=== PATIENT | male | born 1985 | race Caucasian/White ===

== ENCOUNTER 2019-12-08 10:26 | Outpatient (CLI) | payer OTHER, SELFPAY ==
--- NOTE | ~2019-12-08 | XR_ITS ---
EXAMINATION:XR_CERV2-3V_CR DATE: 12/08/2019 11:06 INDICATION: Neck pain TECHNIQUE: AP, lateral, and odontoid views of the cervical spine are provided. COMPARISON: 02/08/2019 FINDINGS: Alignment is normal. The odontoid is intact. No fracture is identified. Vertebral body heig hts and disk spaces are normal. Prevertebral soft tissues are normal. Mild uncovertebral joint osteoa rthritis is again noted at C4-5 and C5-6. The cervicothoracic junction is not well demonstrated on th e lateral view however no definite abnormality is seen. IMPRESSION: 1. Mild cervical spondylosis without acute findings or significant interval change. Reviewed, dictated and finalized at location A. IMPRESSION: 1. Mild cervical spondylosis without acute findings or significant interval yonatan nge.
--- NOTE | ~2019-12-08 | XR_ITS ---
EXAMINATION: XR elbow LT min 3V DATE: 12/08/2019 11:06 INDICATION: Left elbow pain. TECHNIQUE: 4 views of left elbow were obtained. COMPARISON: None. FINDINGS: Bone alignment is normal. No fracture. Joint spaces are well maintained. There is no elbow joint effusion. IMPRESSION: 1. Normal left elbow. Reviewed, dictated and finalized at location A. IMPRESSION: 1. Normal left elbow.
== END 2019-12-08 10:27 | disposition home or self-care (01) ==
LOC: CHSIMG 10:33
PROVIDERS: PCP Internal Medicine; Visit Provider Internal Medicine
DX: M54.2 Cervicalgia (principal); R20.0 Anesthesia of skin; M25.522 Pain in left elbow
CPT/HCPCS: 72040; 73080

== ENCOUNTER 2020-01-26 13:52 | Outpatient (RCR) | payer OTHER, SELFPAY ==
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
--- NOTE | 2020-03-04 13:34 | PTOPEVAL ---
Thank you for referring Nate Kyle to [facility].? The patient is scheduled to be seen for therapy? ____x/week for ___ weeks. Please review, sign, date and return this plan of care ALEJANDRO. I agree with and certify that the following plan of care is medically necessary. Referring Physician Date Admitting Provider: Attending Provider: Pacheco Jean MD Referring Provider: *PT Outpatient Evaluation Start: 01/26/20 14:06 Freq: Status: Active Protocol: Document 03/04/20 12:52 BRITT (Rec: 03/04/20 13:31 BRITT [email or web address]) Therapy Assessment Status Assessment Status Assessment Status Discharge Evaluation Information Problem Diagnosis left shoulder pain with numbness Onset 12/02/19 Subjective Information Pt. notes improved ROM. She Query Text:As Reported By Patient/ reports that his pain levels Family have reduced to a 3/10 consistently. He states that he can ride his motorcycle and push the throttle. He still notes some stinging around the elbow. He also notes that he can look both ways without feeling pulling across the top part of the shoulder. He states that he does have consult with ortho on Wednesday and states that he feels that he could return to work at this time. Pain Assessment Pain Scale Pain Scale Used Numeric (1 - 10) Self Report Pain Assessment Left Arm(s) Reported Pain Level 3 Pain Score Pain Score 3: Self Report Upper Extremity Range of Motion General Upper Extremity Range of Motion Gross Upper Extremity Range of Motion left shoulder flexion 165 Comments left shoulder ER 95 degrees Apleys scratch test for combined extension and IR is symmetrical between the right and left u.e's reaching to the mid thoracic region. Upper Extremity Muscle Strength Testing General Upper Extremity Strength Gross Upper Extremity Strength Comments bilateral shoulder flexion 5/5 bilateral shoulder ER 5/5 bilateral shoulder IR 5/5 bilateral shoulder abduction 5 /5 bilateral elbow flexion 5/5 bilateral elbow extension 5/5 Palpation Asses
== END 2020-03-04 15:32 | disposition home or self-care (01) ==
LOC: CHSPT 13:52
PROVIDERS: PCP Internal Medicine; Visit Provider Internal Medicine
DX: M25.512 Pain in left shoulder (principal); R20.2 Paresthesia of skin
CPT/HCPCS: 97014; 97110; 97140; 97161; G0283

== ENCOUNTER 2021-06-27 15:29 | Outpatient (CLI) | payer OTHER, SELFPAY ==
[2021-06-27 17:32] LABS: SARS-CoV-2 Ag Negative (Negative)
[2021-06-27 17:32] LABS: Influenza Control Valid (Valid)
== END 2021-06-27 15:30 | disposition home or self-care (01) ==
LOC: CHSLAB 15:34
PROVIDERS: PCP Internal Medicine; Visit Provider Nurse Practitioner Family
DX: R51.9 Headache, unspecified (principal); Z20.822 Contact with and (suspected) exposure to COVID-19
CPT/HCPCS: 36415; 87426; 87804; C9803

== ENCOUNTER 2021-07-07 09:53 | Outpatient (CLI) | payer OTHER, SELFPAY ==
--- NOTE | ~2021-07-07 | XR_ITS ---
EXAMINATION: XR chest 2V EXAM DATE: 07/07/2021 10:22 INDICATION: cough/dyspnea/chest pain x 10 days . TECHNIQUE: Frontal and lateral projections of the chest obtained and reviewed. There is no prior alie dy for comparison. FINDINGS: The lungs are clear. There are no pleural effusions. The cardiomediastinal silhouette is within normal limits. There is no pneumothorax suspected. The bones and soft tissues are unremarkab le. IMPRESSION: No acute cardiopulmonary findings. Reviewed, dictated and finalized at location G. TS DIRECTOR
[2021-07-07 10:37] LABS: Hematocrit 45.2 % (40.0-54.0); Hemoglobin 14.2 g/dL (14.0-18.0); Mean Corpuscular HGB Conc 31.4 g/dL (32.0-36.0); Mean Corpuscular Hemoglobin 27.9 pg (27.0-31.0); Mean Corpuscular Volume 88.8 fL (78.0-102.0); Mean Platelet Volume 9.2 fl (8.7-11.0); Platelet Count Result 322 K/mm3 (150-420); Red Blood Count 5.09 M/mm3 (4.70-6.10); Red Cell Distribution Width 13.6 % (11.6-14.4); White Blood Count 15.5 K/mm3 (4.8-10.8)
[2021-07-07 10:50] LABS: D Dimer 0.33 mg/L (0.19-0.50)
[2021-07-07 11:02] LABS: Alanine Aminotransferase 43 U/L (16-63); Albumin Level 3.2 g/dL (3.4-5.0); Alkaline Phosphatase 64 U/L (46-116); Anion Gap 9 mmol/L (8-16); Aspartate Amino Transferase 14 U/L (15-37); Bilirubin,Total 0.3 mg/dL (0.00-1.00); Blood Urea Nitrogen 16 mg/dL (7-18); CRP < 0.5 mg/dL (0.0-0.9); Calcium 8.5 mg/dL (8.5-10.1); Carbon Dioxide 26 mmol/L (21-32); Chloride 102 mmol/L (98-108); Creatine Kinase 64 U/L (39-308); Estimated Glomerular Filt Rate > 60; Glucose 100 mg/dL (70-99); Osmolality Calculated 285 mOsm/kg (285-295); Sodium 137 mmol/L (136-145); Total Protein 7.1 g/dL (6.4-8.2); Troponin I 4.2 ng/L (0.00-60.4)
[2021-07-07 11:03] LABS: SARS-CoV-2 Ag Negative (Negative)
[2021-07-07 11:30] LABS: Band Neutrophils Percent 0 % (0-6); Basophils Percent Manual 0 % (0-1); Eosinophils Percent Manual 0 % (1-6); Lymphocytes Absolute Manual 2.17 K/mm3 (1.1-4.5); Lymphocytes Percent Manual 14 % (18-44); Monocytes Absolute Manual 0.62 K/mm3 (0.1-0.90); Monocytes Percent Manual 4 % (3-9); Neutrophils Absolute Manual 12.71 K/mm3 (1.3-6.7); Neutrophils Percent Manual 82 % (46-73); Platelet Estimate Adequate (Adequate); Total Cells Counted 100
[2021-07-08 19:53] LABS: SARS-CoV-2 RNA PCR Positive
== END 2021-07-07 09:54 | disposition home or self-care (01) ==
LOC: CHSLAB 09:58
PROVIDERS: PCP Internal Medicine; Visit Provider Internal Medicine
DX: U07.1 COVID-19 (principal); R05.9 Cough, unspecified; R06.00 Dyspnea, unspecified; R07.9 Chest pain, unspecified
CPT/HCPCS: 36415; 71046; 80053; 82550; 82553; 84484; 85025; 85380; 86140; 87426; C9803; U0003; U0005

== ENCOUNTER 2021-08-25 13:47 | Outpatient (CLI) | payer OTHER, SELFPAY ==
--- NOTE | ~2021-08-25 | XR_ITS ---
EXAMINATION: XR ankle RT min 3V DATE: 08/25/2021 14:09 INDICATION: Lateral right ankle pain. Injury. TECHNIQUE: 4 views of right ankle were obtained. COMPARISON: None. FINDINGS: Bone alignment is normal. No fracture. There is mild osteoarthritis of talonavicular joint. There is an enthesophyte at plantar aspect of calcaneal tuberosity. IMPRESSION: 1. Mild osteoarthritis of talonavicular joint. Reviewed, dictated and finalized at location A. [employer] DIVISION PROJECT MANAGER
== END 2021-08-25 13:48 | disposition home or self-care (01) ==
PROVIDERS: PCP Internal Medicine; Visit Provider Internal Medicine
DX: M25.571 Pain in right ankle and joints of right foot (principal)
CPT/HCPCS: 73610

== ENCOUNTER 2021-09-02 07:24 | Outpatient (CLI) | payer OTHER, SELFPAY ==
--- NOTE | ~2021-09-02 | MR_ITS ---
EXAMINATION: MR ankle RT wo con DATE: 09/02/2021 08:23 INDICATION: Right ankle pain post twisting injury TECHNIQUE: Magnetic resonance imaging (MRI) of the right ankle was performed without intravenous cont rast. Sequences included sagittal, coronal, and axial proton-density weighted fast spin echo without and with fat saturation. COMPARISON: None. FINDINGS: Medial ankle ligaments: Deep and superficial deltoid ligaments are normal. There is thickening of the superomedial component of the spring ligament complex consistent with scarring related to chronic sprain. Lateral ankle ligaments: The anterior and posterior inferior tibiofibular ligaments are normal. The calcaneofibular images nor mal. There is increased signal along the posterior talofibular ligament without discrete tear defect suggesting relatively recent low-grade sprain. Partial tear of the anterior talofibular ligament whic h appears attenuated with some laxity but without significant surrounding edema. Tendons: Achilles tendon is normal. The peroneus longus and brevis tendons are normal. The tibialis anterior a nd extensor hallucis longus and extensor digitorum longus tendons are normal. The flexor digitorum lo ngus and flexor hallucis longus tendons are normal. Small amount of fluid seen along the normal tibia lis posterior tendon consistent with mild tenosynovitis. Plantar fascia: Mild chronic plantar enthesopathy with small osteophyte and mild thickening of the proximal plantar a poneurosis at its calcaneal origin. Bones/other: Bone alignment is normal with normal marrow signal. No fracture or pathologic marrow replacing proces s. Fluid: Physiologic amount of fluid in the joint spaces. IMPRESSION: 1. Low-grade sprain of the posterior talofibular ligament and moderate grade sprain/partial tear of t he anterior talofibular ligament, the latter without significant surrounding edema which may be more chronic. 2. Mild tibialis posterior tenosynovitis with normal appearing tendon. Reviewed, dictated and finalized at location A. IMPRESSION: 1. Low-grade sprain of the posterior talofibular ligament and moderate grade sp rain/partial tear of the anterior talofibular ligament, the latter without sign ificant surrounding edema which may be more chronic. 2. Mild tibialis posterior tenosynovitis with normal appearing tendon.
== END 2021-09-02 07:25 | disposition home or self-care (01) ==
LOC: CHSIMG 07:25
PROVIDERS: PCP Internal Medicine; Visit Provider Internal Medicine
DX: M25.571 Pain in right ankle and joints of right foot (principal)
CPT/HCPCS: 73721

== ENCOUNTER 2022-03-02 08:17 | Emergency (ER) | payer BC, SELFPAY ==
[2022-03-02 08:24] VITALS: BP 156/93; PULSE 74; RESP 20; TEMP 37.4; O2SAT 99
--- NOTE | 2022-03-02 08:57 | ED.DENTAL ---
HPI - Dental/Oral General Chief complaint: Dental/Oral Stated complaint: Toothache Time Seen by Provider: 03/02/22 09:21 Source: patient Mode of arrival: ambulatory History of Present Illness HPI Narrative: 36-year-old male presented for complaints of lower dental pain since yesterday. He endorses pain to the lower gumline and chin. He denies dental swelling drainage or fever. Taking ibuprofen without relief. He is due to complete the last dose of Augmentin today which she was taking for a dog bite for one week. MD Complaint: tooth pain Related Data Allergies Allergy/AdvReac Type Severity Reaction Status Date / Time No Known Allergies Allergy Verified 03/02/22 09:09 Review of Systems Review of Systems: CONSTITUTIONAL: Denies body aches, fever, chills ENT: Denies rhinorrhea, congestion, sore throat, or otalgia. Reports dental pain CARDIOVASCULAR: Denies chest pain, palpitations RESPIRATORY: Denies cough or dyspnea. SKIN: Denies rash, itching, or wounds. MUSCULOSKELETAL: Denies myalgia. NEUROLOGIC: Denies headache, numbness, tingling, or weakness. [facility] Past Medical History Medical History Generalized headaches Hearing loss Weight gain Surgical History Surgical History History of reconstruction of anterior cruciate ligament tear Social History Social History Smoking status: Former smoker Additional smoking assessment comments: approx 5yrs ago 2014? Alcohol intake: never Comments At time of signature, I have reviewed and agree with nursing past medical, surgical, social and family history unless otherwise noted. Please see nursing chart for further information. There is no relevant family history pertinent to the presenting complaint Exam Narrative: GENERAL: Appears in pain; no acute distress. HEAD: Normocephalic, atraumatic. EYES: EOMI. No redness or drainage. Conjunctivae normal. ENT: Dental pain location of #22--24, mild gum swelling without drainage or apparent abscess. Mucous membranes pink and moist. TMs normal bilaterally. Throat normal. Uvula midline. NECK: Normal AROM. No lymphadenopathy. CHEST: Clear to auscultation. HEART: Regular rate and rhythm. No murmur appreciated. SKIN: Warm, dry, no rash. Chin area is tender to palpation without apparent abscess formation; mild erythema to chin. Amos is thick and heavy, no apparent folliculitis or open areas, no induration below mandible, no neck pain NEURO: No focal deficits. Alert and oriented x3. Gait steady. Course Course Emergency Course: Patient is aware of diagnosis, understands and agrees to treatment plan. Anticipatory guidance given. Patient agrees to follow-up as directed and is aware of reasons to seek care at the emergency department. Portions of this record may have been created with voice recognition software Level of Care: Express Care Visit Vital Signs Vital signs: Vital Signs Temperature 99.3 F 03/02/22 08:24 Pulse Rate 74 03/02/22 08:24 Respiratory Rate 20 03/02/22 08:24 Blood Pressure 156/93 H 03/02/22 08:24 Pulse Oximetry 99 03/02/22 08:24 Oxygen Delivery Room Air 03/02/22 08:24 Temperature 99.3 F 03/02/22 08:24 Pulse Rate 74 03/02/22 08:24 Respiratory Rate 20 03/02/22 08:24 Blood Pressure 156/93 H 03/02/22 08:24 Pulse Oximetry 99 03/02/22 08:24 Oxygen Delivery Room Air 03/02/22 08:24 MDM - Dental/Oral MDM Narrative Medical decision making narrative: Physical exam does not show apparent abscess, given the tenderness to the skin he is advised to start the abx, with any worsening symptoms or concern he is to go to the ER. Discussed the 'danger triangle.' There are no signs of space occupying lesions that are compromising to the airway; No uvular deviation or soft palate edema. The floor of the
== END 2022-03-02 09:36 | disposition home or self-care (01) ==
PROVIDERS: Emergency Provider Nurse Practitioner Family; PCP Internal Medicine
DX: L03.211 Cellulitis of face (principal); Z87.891 Personal history of nicotine dependence
CPT/HCPCS: 99213; G0463

== ENCOUNTER 2022-04-10 10:07 | Emergency (ER) | payer BC, SELFPAY ==
[2022-04-10 10:17] VITALS: BP 145/77; PULSE 71; RESP 18; TEMP 37; O2SAT 98
--- NOTE | 2022-04-10 10:49 | ED.NAVMDI ---
HPI - Nausea/Vomiting/Diarrhea General Chief complaint: Nausea/Vomiting/Diarrhea Stated complaint: nausea aches fatigue Time Seen by Provider: 04/10/22 10:30 Source: patient, RN notes reviewed and old records reviewed Mode of arrival: ambulatory Limitations: no limitations History of Present Illness HPI Narrative: 36-year-old male who presents to [facility] care with complaints of diarrhea on Wednesday. Patient states that this morning he went to work and he has had 3 to 4 episodes of vomiting so was sent home from work. Patient also reports that he has stuffy nose and also body aches. 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 MD elicited complaint: nausea, vomiting, diarrhea and other (body aches) Onset (ago): day(s) (day 2 of symptoms with increase today) Description of vomiting: food contents Description of diarrhea: watery Associated nausea: Yes Associated abdominal pain: No Treatment prior to arrival: none Related Data Allergies Allergy/AdvReac Type Severity Reaction Status Date / Time No Known Allergies Allergy Verified 04/10/22 10:22 Review of Systems Review of Systems: CONSTITUTIONAL: Denies fever, reports chills, or sweats. EYES: Denies visual changes, redness, or discharge. ENT: Denies rhinorrhea, congestion, sore throat, or otalgia. CARDIOVASCULAR: Denies chest pain, palpitations, or edema. RESPIRATORY: Denies cough or dyspnea. GASTROINTESTINAL: Denies abdominal pain, positive for nausea, vomiting, or diarrhea. GENITOURINARY: Denies dysuria or hematuria. SKIN: Denies rash or itching. MUSCULOSKELETAL: Denies back pain, joint pain, positive for myalgia NEUROLOGIC: Positive for headache,denies numbness, or weakness. PSYCHIATRIC: Denies anxiety or depression. All systems reviewed & are unremarkable except as noted in HPI and below PMFSH Past Medical History Medical History (Updated 04/12/22 @ 11:21 by Dina Rowley NP) Cellulitis of jaw Generalized headaches Hearing loss Weight gain Surgical History Surgical History History of reconstruction of anterior cruciate ligament tear Social History Social History (Updated 04/12/22 @ 11:13 by Dina Rowley NP) Smoking status: Former smoker Additional smoking assessment comments: approx 5yrs ago 2014? Alcohol intake: never Substance use: never Substance use type: does not use Living arrangements: with family Gender identity (if verbalized by the patient): Male Comments At time of signature, agree with nursing past medical, surgical, social and family history. There is no relevant family history pertinent to the presenting complaint Exam Narrative: GENERAL: Well-appearing, well-nourished, obese and in no acute distress. HEAD: Normocephalic, atraumatic. EYES: PERRLA and EOMI. ENT: Nares clear, no rhinorrhea or epistaxis. Mucous membranes moist.TM's normal with good light reflex, throat pink with no lesions or exudates or swelling NECK: Supple.no lymphadenopathy CHEST: Clear to auscultation. No respiratory distress.SAO2 98% on room air HEART: Regular rate and rhythm. No murmur heard. Normal peripheral pulses. ABDOMEN: Soft, nontender, nondistended, normal active bowel sounds.episodes of nausea, vomiting and diarrhea EXTREMITIES: Normal range of motion. No edema. SKIN: Warm, dry, no rash. NEURO: No focal deficits. Alert and oriented x3.fatigue Course Course Emergency Course: Patient is aware of diagnosis, understands and agrees to treatment plan.? Anticipatory guidance given.? Patient agrees to follow-up as directed and is aware of reasons to seek care at the emergency department. Portions of this record may have been created with voice recognition software Level of Care: Express Care Visit Vital Signs
== END 2022-04-10 11:23 | disposition home or self-care (01) ==
PROVIDERS: Emergency Provider Registered Nurse
DX: K52.9 Noninfective gastroenteritis and colitis, unspecified (principal); Z87.891 Personal history of nicotine dependence
CPT/HCPCS: 87081; 87804; 87880; 99213; G0463

== ENCOUNTER 2022-08-14 16:14 | Emergency (ER) | payer BC, SELFPAY ==
[2022-08-14 16:19] VITALS: BP 130/69; PULSE 92; RESP 16; TEMP 37.2; O2SAT 98
--- NOTE | 2022-08-14 17:07 | ED.URI ---
HPI - URI/Sore Throat General Chief Complaint: Upper Respiratory Infection Stated Complaint: scratchy throat, pain in lymph nodes; fever Time Seen by Provider: 08/14/22 17:14 Source: patient, RN notes reviewed and old records reviewed Mode of arrival: ambulatory Limitations: no limitations History of Present Illness HPI Narrative: 36 year old male accompanied by presents to express care with complaints of sore throat since yesterday and low grade fevers. Patient reports the highest temperature noted to be 100.7F and has been taking Tylenol for his pain and fever. Patient reports that he has had some coughing and some body aches, he denies any shortness of breath, no nausea vomiting or diarrhea reported. He states that children have all recently been ill. MD elicited complaint: cough and sore throat Onset (ago): day(s) (1) Pain scale (0-10): 5 Able to tolerate fluids by mouth: Yes Treatments prior to arrival: acetaminophen Related Data Allergies Allergy/AdvReac Type Severity Reaction Status Date / Time No Known Allergies Allergy Verified 08/14/22 16:35 Review of Systems Review of Systems: CONSTITUTIONAL: Denies malaise, chills, sweats, or fever. EYES: Denies visual changes, redness, or discharge. ENT: Reports rhinorrhea, congestion, sinus pain, otalgia and sore throat. CARDIOVASCULAR: Denies chest pain, palpitations, or edema. RESPIRATORY: Reports cough.? Denies dyspnea. GASTROINTESTINAL: Denies abdominal pain, nausea, vomiting, diarrhea SKIN: Denies rash or itching. MUSCULOSKELETAL: Denies myalgia. NEUROLOGIC: Denies headache. All systems reviewed & are unremarkable except as noted in HPI and below PMFSH Past Medical History Medical History (Updated 08/15/22 @ 00:01 by Ivette Anguiano) Cellulitis of jaw Generalized headaches Hearing loss Weight gain Surgical History Surgical History History of reconstruction of anterior cruciate ligament tear Social History Social History (Updated 04/12/22 @ 11:13 by Dina Rowley NP) Smoking status: Former smoker Additional smoking assessment comments: approx 5yrs ago 2014? Alcohol intake: never Substance use: never Substance use type: does not use Living arrangements: with family Gender identity (if verbalized by the patient): Male Comments At time of signature, agree with nursing past medical, surgical, social and family history. There is no relevant family history pertinent to the presenting complaint Exam Narrative: GENERAL: Well-appearing, well-nourished, obese,and in no acute distress. HEAD: Normocephalic EYES: PERRLA, conjunctivae clear ENT: Nares clear, turbinates edematous and erythematous, clear discharge. Mucous membranes moist. TM pearly gonzalez with dull light reflex bilaterally; no tragal tenderness. Oropharynx erythematous without lesions. Tonsils red enlarged and without exudate, no drooling, no hoarseness, no trismus, uvula midline. NECK: Supple. lymphadenopathy CHEST: Clear to auscultation, breath sounds equal. No wheezing, rhonchi, rales, or stridor. No respiratory distress, speaks in full sentences.dry cough SAO2 98% on room air HEART: Regular rate and rhythm. No murmur heard. SKIN: Warm, dry, no rash. NEURO: Alert and oriented x3. PSYCH: Normal mood and affect Course Course Emergency Course: Patient is aware of diagnosis, understands and agrees to treatment plan.? Anticipatory guidance given.? Patient agrees to follow-up as directed and is aware of reasons to seek care at the emergency department. Portions of this record may have been created with voice recognition software Level of Care: Express Care Visit Vital Signs Vital signs: Vital Signs Temperature 37.2 C 08/14/22 16:19 Pulse Rate 92 08/14/22 16:19 Respiratory Rate 16 08/14/22 16:19 Blood Pressure 130/69 08/14/22 16:19 Pulse Oximetry 98 08/14/22 16:19 Oxygen De
== END 2022-08-14 17:28 | disposition home or self-care (01) ==
PROVIDERS: Emergency Provider Registered Nurse; PCP Internal Medicine
DX: J02.0 Streptococcal pharyngitis (principal)
CPT/HCPCS: 87880; 99213; G0463

== ENCOUNTER 2025-01-02 10:12 | Outpatient (CLI) | payer OTHER, SELFPAY ==
--- NOTE | ~2025-01-02 | CT_ITS ---
CT abdomen pelvis wo con Ordering provider: Pacheco Jean MD History: 39 years Male with . Flank pain/hematuria . Comparison: None. Technique: CT abdomen and pelvis without IV and without oral contrast. Automated exposure control and iterative reconstruction technique were employed. The dose-length product was 1260.39 mGy-cm. Findings: VISUALIZED LOWER CHEST: Normal. UPPER ABDOMINAL ORGANS: Liver: Normal. Gallbladder: Normal. Spleen: Normal. Stomach/duodenum: Normal. Pancreas: Normal. Adrenals: Normal. Kidneys: Minimal fullness of the right renal pelvis with no definite stones. PELVIC ORGANS: The bladder is normal. BOWEL AND MESENTERY: Colon: No evidence of diverticulitis. Thickened wall of the rectum suggestive of proctitis. No eviden ce of appendicitis. Small Bowel: Normal. No obstruction. Peritoneum/mesentery: No free air or free fluid. No mesenteric lymphadenopathy. RETROPERITONEUM: Normal aorta. No retroperitoneal lymphadenopathy. MUSCULOSKELETAL: Superficial soft tissues: The superficial soft tissues are normal. Bones: Age appropriate degenerative changes of the spine. IMPRESSION: 1. No evidence of appendicitis, diverticulitis or intestinal obstruction. 2. Thickened wall of the rectum. Evaluation for proctitis is advised. 3. Minimal fullness of the right renal pelvis with no definite stones. Reviewed, dictated and finalized at location A.
--- OUTSIDE RECORDS SUMMARY | 2025-01-02 10:29 | XMS_ITS | Clinical Summary ---
Author Organization [facility] Address [address] [place] [address] Phone Care Team Providers Care Lap Hand Tool Name Role Phone Pacheco Jean MD Primary Care Provider [phone] Allergies No known active allergies Medications traMADol (ULTRAM) 50 MG TabletIndicatio ns:Dog bite of right forearm, initial encounter Take 1 Tablet by mouth every 8 hours as needed for Moderate or more severe pain. 12 Tablet 02/17/2022 Active Active Problems Problem Noted Date Diagnosed Date BMI 50.0-59.9, adult 03/05/2022 Prediabetes 03/05/2022 Hypertension 03/05/2022 Morbid obesity 03/03/2022 Resolved Problems Problem Noted Date Diagnosed Date Resolved Date Cellulitis of buccal space of mouth 03/02/2022 03/05/2022 Family History Medical History Relation Name Comments Cancer Father Stroke Father Stroke Maternal Grandmother Cancer Mother Osteoarthritis Mother Relation Name Status Comments Father Maternal Grandmother Mother Social History Tobacco Use Types Packs/Day Years Used Date Smoking Tobacco: Former Smokeless Tobacco: Never Comments:Quit 12/2014 Alcohol Use Standard Drinks/Week Comments Not Currently 0 (1 standard drink = 0.6 oz pur e alcohol) Sex and Gender Information Value Date Recorded Sex Assigned at Not on file Legal Sex Male 3:36 PM CDT Gender Identity Not on file Sexual Orientation Not on file Last Filed Vital Signs Vital Sign Reading Time Taken Comments Blood Pressure 144/48 05/14/2022 6:03 PM SUSTAINABILITY DIRECTOR Pulse 94 05/14/2022 6:03 PM SUSTAINABILITY DIRECTOR Temperature 37.8 C (100.1 F) 05/14/2022 4:53 PM SUSTAINABILITY DIRECTOR Respiratory Rate 16 05/14/2022 4:53 PM SUSTAINABILITY DIRECTOR Oxygen Saturation 97% 05/14/2022 6:03 PM SUSTAINABILITY DIRECTOR Inhaled Oxygen Concentration - - Weight 127 kg (280 lb) 05/14/2022 4:53 PM SUSTAINABILITY DIRECTOR Height 167.6 cm (5' 6) 05/14/2022 4:53 PM SUSTAINABILITY DIRECTOR Body Mass Index 45.19 05/14/2022 4:53 PM SUSTAINABILITY DIRECTOR Plan of Treatment Health Maintenance Due Date Last Done Comments Hepatitis C Virus (HCV) Screening 1986 Human Papillomavirus (HPV) Immunization (1 - Male 3-dose series) 2001 SARS-COV-2 Immunization ( season) 2024 Influenza Immunization (#1) 02/19/202511/2018, 03/21/2019, 04/26/2017, Additional history exists Respiratory Syncytial Virus (RSV) Immunization (Adult) (1 - 1-dose 75+ series) 2061 Meningococcal Immunization (ACWY) Aged Out 07/20/2007 No longer eligible based on patient's age to complete this topic Pneumococcal Immunization Combined Aged Out 07/20/2007 No longer eligible based on patient's age to complete this topic DTaP/Tdap/Td Immunization Discontinued 08/19/2007 TdaP Immunization Completed 08/19/2007 Hepatitis B Immunization Completed 008, 08/19/2007, 07/20/2007 Rotavirus Immunization Aged Out No lo nger eligible based on patient's age to complete this topic Insurance [facility] [employer] Advance Directives * Full Code (Latest Code Status on File) Date Activated Date Inactivated Comments 03/02/2022 10:40 PM 03/05/2022 3:13 PM CPR-Full Tr eatment: FULL ARREST: Attempt Resuscitation/CPR wit intubation and mechanical ventilation. PRE-ARREST: Use entire range of life support measures to stabilize the patient. Care Teams Lap Hand Tool Relationship Specialty Start Date End Date Pacheco Jean MD [address] [place] [address] PCP - General Internal Medicine 02/17/22
--- OUTSIDE RECORDS SUMMARY | 2025-01-02 10:30 | XMS_ITS | Continuity of Care Document ---
Author Name [facility] Organization [facility] Care Team Providers Care Product Communications Manager Name Role Phone [facility] Unavailable Unavailable Problems Combined list of problems from Department of Defense and Veterans Affairs facilities. It does not include entries that were removed or entered in error. Problem Status Onset Date Problem Type Date of Resolution Comments Source Attention deficit hyperactivity disorder, predominantly inattentive type Active Condition [facility] Chronic diarrhea Active Condition [facility] Vasyl [facility] Migraine Active Condition [facility] visit for: postsurgical exam Active Condition [facility] visit for: administrative purpose Inactive Condition [facility] Body Mass Index Inactive Condition [facility] OBESITY Active Condition DoD Dietary Counseling Pertaining To Obesity Active Condition [facility] KNEE SPRAIN CRUCIATE LIGAMENT ANTERIOR Inactive Condition [facility] joint stiffness of the knee Active Condition [facility] nausea with vomiting Inactive Condition [facility] Aftercare Following Surgery Active Condition [facility] Aftercare Following Surgery Of Musculoskeletal System Inactive Condition [facility] 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 [facility] insomnia Active Condition [facility] KNEE SPRAIN CRUCIATE LIGAMENT ANTERIOR LEFT Inactive Condition [facility] KNEE SPRAIN CRUCIATE LIGAMENT ANTERIOR COMPLETE TEAR LEFT Inactive Condition [facility] visit for: screening exam neurological disorders traumatic brain injury Inactive Condition [facility] 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 [facility] PATELLOFEMORAL SYNDROME Active Condition [facility] Other Physical Therapy Active Condition DoD joint pain, localized in the knee Active Condition [facility] ADJUSTMENT DISORDER Active Condition [facility] visit for: services physical Active Condition [facility] Vaccines Prophylactic Need Against Influenza Inactive Condition [facility] BENIGN SKIN NEOPLASM SUBCUTANEOUS LIPOMA Inactive Condition DoD Medications Combined list of outpatient medications from Department of Defense and Veterans Affairs facilities.Medications provided include 1) outpatient medications from the last 15 months, and 2) patient-reported medications. Medication Details Route Status Patient Instructions Prescription Expires Prescription Number Last Dispense Date Ordering Provider Order Date Order Qty Source MELOXICAM 15MG TAB TAKE ONE TABLET BY MOUTH ONCE A DAY ORAL ACTIVE LAKHWINDER ARGUELLO 2019 [facility] RANITIDINE HCL 150MG TAB TAKE ONE TABLET BY MOUTH EVERY MORNING ORAL ACTIVE DOT [place] [address] [facility] Allergies, Adverse Reactions, Alerts Combined list of allergies from Department of Defense and Veterans Affairs facilities. It does not include entries that were removed or entered in error. Substance Category Reaction Severity Reaction type Status Date Reported Comments Source No Known Allergies Drug allergy (disorder) active 10/23/2009 [facility] Immunizations Combined list of available immunizations from the Department of Defense and Veterans Affairs facilities. Immunization Series Date Given Administered By Site Reaction Lot Number CVX Code Drug Recruitment Manager Status Comments Source INFLUENZA, UNSPECIFIED FORMULATION 2018 88 complet [facility] INFLUENZA, UNSPECIFIED FORMULATION 2016 88 complet [facility] Influenza, seasonal, injectable, preservative free 0 2010 UNK 140 [employer] (MED) complet ed Influenza , seasonal, injectabl e, preservat esha free DoD influenza virus vaccine, split virus (incl. purified surface antigen)-reti red CODE 0 2009 UNK 15 Unknown (UNK) comple t ed influenza virus vaccine, split virus (incl. purified surface antigen)- retired CODE DoD anthrax vaccine 3 2009 UNK 24 [employer] [place] (MIP) complet ed anthrax vaccine DoD typhoid Vi capsular polysaccharid e vaccine 2 2009 UNK 101 [employer] (WAL) complet ed typhoid Vi capsular polysacch aride vaccine DoD Novel influenza-H1N 1-09, injectable 0 2008 UNK 127 (AG) complet ed Novel influenza -S5T6-08, injectabl e DoD influenza virus vaccine, split virus (incl. purified surface antigen)-reti red CODE 0 2008 UNK 15 Unknown (UNK) comple t ed influenza virus vaccine, split virus (incl. purified surface antigen)- retired CODE DoD vaccinia (smallpox) vaccine 0 2008 UNK 75 (HERB) complet ed vaccinia (smallpox ) vaccine DoD anthrax vaccine 2 2008 UNK 24 [employer] [place] (MIP) complet ed anthrax vaccine DoD anthrax vaccine 1 2008 [id number] [employer] [place] (MIP) complet ed anthrax vaccine DoD influenza virus vaccine, split virus (incl. purified surface antigen)-reti red CODE 0 2007 [id number] 15 [employer] (SKB) complet ed influenza virus vaccine, split virus (incl. purified surface antigen)- retired CODE DoD typhoid Vi capsular polysaccharid e vaccine 1 2007 UNK 101 [employer] ([facility]ALTH [facility]) complet ed typhoid Vi capsular polysacch aride vaccine DoD hepatitis A and hepatitis B vaccine 3 2007 UNK 104 [employer] (SKB) complet ed hepatitis A and hepatitis B vaccine DoD poliovirus vaccine, inactivated 0 2007 [id number] 10 Sanofi Pasteur ([facility]) complet ed polioviru s vaccine, inactivat ed DoD yellow fever vaccine 0 2007 [id number] Sanofi Pasteur ([facility]) complet ed yellow fever vaccine DoD hepatitis A and hepatitis B vaccine 2 2007 [id number] 104 [employer] (SKB) complet ed hepatitis A and hepatitis B vaccine DoD tetanus toxoid, reduced diphtheria toxoid, and acellular pertu is vaccine, adsorbed 0 2007 [id number] 115 [employer] (AVB) complet ed tetanus toxoid, reduced diphtheri a toxoid, and acellular pertussis vaccine, adsorbed DoD measles, mumps and rubella virus vaccine 0 2007 [id number] Merck (MSD) complet ed measles, mumps and rubella virus vaccine DoD pneumococcal polysaccharid e vaccine, 23 valent 0 2007 [id number] 33 [employer] (AVB) complet ed pneumococ taye polysacch aride vaccine, 23 valent DoD hepatitis A and hepatitis B vaccine 1 2007 [id number] 3AA 104 [employer] (SKB) complet ed hepatitis A and hepatitis B vaccine DoD influenza virus vaccine, live, attenuated, for intranasal use 0 2007 [id number] [employer] (MED) complet ed influenza virus vaccine, live, attenuate d, for intranasa l use DoD meningococcal polysaccharid e (groups A, C, Y and W-135) diphtheria toxoid conjugate vaccine (MCV4P) 0 2007 [id number] [employer] (AVB) complet ed meningoco ccal polysacch aride (groups A, C, Y and W-135) diphtheri a toxoid conjugate vaccine (MCV4P) DoD Encounters Combined list of: 1) Encounters from Department of Veterans Affairs facilities going backup to the last 18 months, not all VA inpatient encounters are included; 2) Encounters from the Department of Defense facilities going backup to 280 months. Location Location Details Encounter Type Encounter Number Reason For Visit Attending Provider ADM Date DC Date Status Disposition Source [facility](Ge neral Surgery Clinic) OUTPATIENT [id number] Lipoma right forearm ROSE MARIE MCPHERSON 04/09 Released w/o Limitations [facility]( General Surgery Clinic) [facility](Ge neral Surgery Clinic) OUTPATIENT [id number] Excisio n Lipomas Right Forearm ROSE MARIE MCPHERSON 04/26 Released w/o Limitations [facility]( General Surgery Clinic) [facility]) OUTPATIENT [id number] Influen za Vaccine BASIM PINEDA 09/10 Released w/o Limitations [facility]( Occupat ional Health) [facility] [id number] MIKE ADAMSON 09/16 Released w/o Limitations [facility]( [facility] ent Health Service s) [facility](Ph ysical Therapy-B ldg H1) OUTPATIENT [id number] left patella r tendoni tis JOELLE JHAVERI 11/13 Released with Work/Duty Limitations [facility]( Physica l Therapy -Bldg H1) [facility](Ph ysical Therapy-B ldg H1) OUTPATIENT [id number] GEO Gonzalez 11/20 Released w/o Limitations [facility]( Physica l Therapy -Bldg H1) [facility](Ph ysical Therapy-B ldg H1) OUTPATIENT [id number] GEO Gonzalez 11/22 Released w/o Limitations [facility]( Physica l Therapy -Bldg H1) [facility](Sp med H1) OUTPATIENT [id number] REHAB MIAHPAMELAH NOVEMBER 24 Released w/o Limitations [facility]( Spmed H1) [facility](Sp med H1) OUTPATIENT [id number] DELMI MACEDO P 12/16 Released w/o Limitations [facility]( Spmed H1) [facility](Sp med H1) [id number] [facility]18 Released w/o Limitations [facility]( Spmed H1) [facility](Sp med H1) OUTPATIENT [id number] rehab DELMI MACEDO P 12/25 Released w/o Limitations [facility]( Spmed H1) [facility](Sp med H1) OUTPATIENT [id number] rehab DELMI MACEDO P 12/27 Released w/o Limitations [facility]( Spmed H1) [facility](Sp med H1) OUTPATIENT [id number] f/u MARIELA MCCLURE 12/30 Released w/o Limitations [facility]( Spmed H1) [facility](Sp med H1) OUTPATIENT [id number] rehab DELMI MACEDO P 01/01 Released w/o Limitations [facility]( Spmed H1) [facility](8t h ESB [employer] BAS) OUTPATIENT [id number] Sports Med Consult VICTOR MANUEL GUTIERREZ 03/03 Released w/o Limitations [facility]( 8th ESB Battall ion BAS) [facility](8t h ESB [facility] BAS) OUTPATIENT [id number] L knee pain VICTOR MANUEL GUTIERREZ 03/06 Released with Work/Duty Limitations [facility]( 8th ESB Battall ion BAS) [facility](Sp med H1) OUTPATIENT [id number] [place] femoral syndrom e DANGELO AMOR 03/24 Released w/o Limitations [facility]( Spmed H1) [facility](Sp med H1) OUTPATIENT [id number] DELMI Perez P 04/01 Released w/o Limitations [facility]( Spmed H1) [facility](Sp med H1) OUTPATIENT [id number] DANGELO Purdy 04/07 Released w/o Limitations [facility]( Spmed H1) [facility](Sp med H1) OUTPATIENT [id number] DELMI Perez P 04/08 Released w/o Limitations [facility]( Spmed H1) [facility](Sp med H1) OUTPATIENT [id number] DELMI Perez P 04/10 Released w/o Limitations [facility]( Spmed H1) [facility](Sp med H1) OUTPATIENT [id number] DELMI Perez P 04/11 Released w/o Limitations [facility]( Spmed H1) [facility] ) OUTPATIENT [id number] PRE-DEP LOYMENT [facility] TESTING DANNA SEGAL 04/15 Released w/o Limitations [facility]( [facility]) [facility]( med H1) OUTPATIENT [id number] f/u DANGELO AMOR 04/22 Released w/o Limitations [facility]( Spmed H1) [facility](8t h ESB Batkarina n BAS) OUTPATIENT [id number] CANDICE VICTOR MANUEL GUTIERREZ HAMILTON 04/23 Released with Work/Duty Limitations [facility]( 8th ESB Battall ion BAS) [facility](Sp med H1) OUTPATIENT [id number] f/u DANGELO AMOR 04/23 Released w/o Limitations [facility]( Spmed H1) [facility](Sp med H1) OUTPATIENT [id number] DELMI Perez P 04/29 Released w/o Limitations [facility]( Spmed H1) [facility]( med H1) OUTPATIENT [id number] DELMI Perez P 05/05 Released w/o Limitations [facility]( Spmed H1) [facility]( med H1) OUTPATIENT [id number] DELMI Perez P 05/07 Released w/o Limitations [facility]( Spmed H1) [facility]( med H1) OUTPATIENT [id number] DELMI Perez P 05/09 Released w/o Limitations [facility]( Spmed H1) [facility]( med H1) OUTPATIENT [id number] DELMI Perez P 05/12 Released w/o Limitations [facility](Or [facility]opedic Clinic) OUTPATIENT [id number] KNEE SPRAIN CRUCIAT E LIGAMEN T ANTERIO R COMPLET E TEAR LEFT QUE PRATER 05/22 Released w/o Limitations [facility]( Orthope dic Clinic) [facility]( med H1) OUTPATIENT [id number] follow up left knee DANGELO AMOR 05/23 Released w/o Limitations [facility]( Spmed H1) [facility]( med H1) OUTPATIENT [id number] DELMI Perez P 05/27 Released w/o Limitations [facility]( Spmed H1) [facility]( med H1) OUTPATIENT [id number] DELMI Perez P 05/28 Released w/o Limitations [facility]( Spmed H1) [facility](Sp med H1) OUTPATIENT [id number] DELMI Perez P 05/30 Released w/o Limitations [facility]( Spmed H1) [facility](Sp med H1) OUTPATIENT [id number] DELMI Perez P 06/02 Released w/o Limitations [facility]( Spmed H1) [facility](Sp med H1) OUTPATIENT [id number] DELMI Perez P 06/04 Released w/o Limitations [facility]( Spmed H1) [facility](8t h ESB Batt[employer] BAS) OUTPATIENT [id number] Trouble sleepin VICTOR MANUEL Burris 06/06 Released w/o Limitations [facility]( 8th ESB Battall [employer] BAS) [facility](Sp med H1) OUTPATIENT [id number] DELMI Perez P 06/06 Released w/o Limitations [facility]( Spmed H1) [facility](Sp med H1) OUTPATIENT [id number] DELMI Perez P 06/09 Released w/o Limitations [facility]( Spmed H1) [facility](Sp med H1) OUTPATIENT [id number] DELMI Perez P 06/25 Released w/o Limitations [facility]( Spmed H1) [facility](Sp med H1) OUTPATIENT [id number] follow up left knee and limdu SHANIKA TOMPKINS 06/26 Released w/o Limitations [facility]( Spmed H1) [facility](Sp med H1) OUTPATIENT [id number] DELMI Perez P 07/02 Released w/o Limitations [facility]( Spmed H1) [facility](Sp med H1) OUTPATIENT [id number] DELMI Perez P 07/09 Released w/o Limitations [facility]( Spmed H1) [facility](Sp med H1) OUTPATIENT [id number] DELMI Perez P 07/11 Released w/o Limitations [facility]( Spmed H1) [facility](Sp med H1) OUTPATIENT [id number] DELMI Perez P 07/14 Released w/o Limitations [facility]( Spmed H1) [facility](Sp med H1) OUTPATIENT [id number] DELMI Perez P 07/16 Released w/o Limitations [facility]( Spmed H1) [facility](Sp med H1) OUTPATIENT [id number] DELMI Perez P 07/21 Released w/o Limitations [facility]( Spmed H1) [facility](Sp med H1) OUTPATIENT [id number] DELMI Perez P 07/23 Released w/o Limitations [facility]( Spmed H1) [facility](Sp med H1) OUTPATIENT [id number] follow up DANGELO AMOR 07/24 Released w/o Limitations [facility]( Spmed H1) [facility](Sp med H1) OUTPATIENT [id number] DELMI Perez P 07/28 Released w/o Limitations [facility]( Spmed H1) [facility](Sp med H1) OUTPATIENT [id number] DELMI Perez P 07/30 Released w/o Limitations [facility]( Spmed H1) [facility](Sp med H1) OUTPATIENT [id number] DELMI Perez P 08/01 Released w/o Limitations [facility]( Spmed H1) [facility](Sp med H1) OUTPATIENT [id number] DELMI Perez P 08/13 Released w/o Limitations [facility]( Spmed H1) [facility]( med H1) OUTPATIENT [id number] DELMI Perez P 08/18 Released w/o Limitations [facility]( Spmed H1) [facility]( med H1) OUTPATIENT [id number] DELMI Perez P 08/20 Released w/o Limitations [facility]( Spmed H1) [facility]( med H1) OUTPATIENT [id number] DELMI Perez P 08/25 Released w/o Limitations [facility] H[facility]) OUTPATIENT [id number] follow up DANGELO AMOR 08/26 Released w/o Limitations [facility]( Spmed H1) [facility]( med H1) OUTPATIENT [id number] DLEMI Perez P 08/27 Released w/o Limitations [facility]( Spmed H1) [facility]( med H1) OUTPATIENT [id number] DELMI Perez P 08/29 Released w/o Limitations [facility]( Spmed H1) [facility]( med H1) OUTPATIENT [id number] DELMI Perez P 09/01 Released w/o Limitations [facility](Or thopedic Clinic) OUTPATIENT [id number] PREOP LT KNEE ACLR/HS AUTOGRA QUE DAVE 09/02 Released w/o Limitations [facility]( Orthope dic Clinic) [facility](Ph ysical Therapy Clinic) OUTPATIENT [id number] SHERIF Dennis 09/02 Released w/o Limitations [facility]( Physica l Therapy Clinic) [facility](Sp med H1) OUTPATIENT [id number] DELMI Perez P 09/03 Released w/o Limitations [facility]( Spmed H1) [facility](Sp med H1) OUTPATIENT [id number] DELMI Galvin P 09/05 Released w/o Limitations [facility]( Spmed H1) [facility](Sp med H1) OUTPATIENT [id number] DELMI Galvin P 09/08 Released w/o Limitations [facility]( Spmed H1) [facility](Sp med H1) OUTPATIENT [id number] DELMI Galvin P 09/10 Released w/o Limitations [facility]( Spmed H1) [facility](Ph ysical Therapy Clinic) OUTPATIENT [id number] walk in..pos t op SHERIF OKEEFE 09/15 Released with Work/Duty Limitations [facility]( Physica l Therapy Clinic) [facility](Ph ysical Therapy Clinic) OUTPATIENT [id number] walk in SHERIF MONROY 09/16 Released w/o Limitations [facility]( Physica l Therapy Clinic) [facility](Ph ysical Therapy Clinic) OUTPATIENT [id number] walk in...po st op SHERIF MONROY 09/18 Released w/o Limitations [facility]( Physica l Therapy Clinic) [facility](Ph ysical Therapy Clinic) OUTPATIENT [id number] KEVEN WEAVER 09/18 Released w/o Limitations [facility]( Physica l Therapy Clinic) [facility](Ph ysical Therapy Clinic) OUTPATIENT [id number] SHERIF MONROY 09/22 Released w/o Limitations [facility]( Physica l Therapy Clinic) [facility](Ph ysical Therapy Clinic) OUTPATIENT [id number] walk in SHERIF MONROY 09/24 Released w/o Limitations [facility]( Physica l Therapy Clinic) [facility](Or thopedic Clinic) OUTPATIENT [id number] POST-OP LT KNEE ACLR/HS JOSI QUE DEN 09/26 Released w/o Limitations [facility]( Orthope dic Clinic) [facility](Ph ysical Therapy Clinic) OUTPATIENT [id number] walk in SHERIF MONROY 09/26 Released w/o Limitations [facility]( Physica l Therapy Clinic) [facility](Ph ysical Therapy Clinic) OUTPATIENT [id number] walk in SHERIF MONROY 09/29 Released w/o Limitations [facility]( Physica l Therapy Clinic) [facility](Ph ysical Therapy Clinic) OUTPATIENT [id number] SHERIF MONROY 10/03 Released w/o Limitations [facility]( Physica l Therapy Clinic) [facility](Ph ysical Therapy Clinic) OUTPATIENT [id number] DOMINGUEZ CALDERA 10/03 Released with Work/Duty Limitations [facility]( Physica l Therapy Clinic) [facility](Ph ysical Therapy Clinic) OUTPATIENT [id number] ROSE MARY NICHOLS 10/07 Released w/o Limitations [facility]( Physica l Therapy Clinic) [facility](Ph ysical Therapy Clinic) OUTPATIENT [id number] CARLOS MCHUGH 10/13 Released w/o Limitations [facility]( Physica l Therapy Clinic) [facility](Ph ysical Therapy Clinic) OUTPATIENT [id number] SHERIF MONROY 10/16 Released w/o Limitations [facility]( Physica l Therapy Clinic) [facility](Ph ysical Therapy Clinic) OUTPATIENT [id number] walk in SHERIF MONROY 10/23 Released w/o Limitations [facility]( Physica l Therapy Clinic) [facility](Ph ysical Therapy Clinic) OUTPATIENT [id number] ROSE MARY NICHOLS 10/27 Released w/o Limitations [facility]( Physica l Therapy Clinic) [facility](Ph ysical Therapy Clinic) OUTPATIENT [id number] KEVEN WEAVER 10/29 Released w/o Limitations [facility]( Physica l Therapy Clinic) [facility](Ph ysical Therapy Clinic) OUTPATIENT [id number] ROSE MARY NICHOLS 10/31 Released w/o Limitations [facility]( Physica l Therapy Clinic) [facility](Ph ysical Therapy Clinic) OUTPATIENT [id number] KEVEN WEAVER 11/03 Released w/o Limitations [facility]( Physica l Therapy Clinic) [facility](Or thopedic Clinic) OUTPATIENT [id number] f/u lt acl QUE PRATER 11/04 Released w/o Limitations [facility]( Orthope dic Clinic) [facility](Or thopedic Clinic) TELE CONSULT [id number] DOMINGUEZ Ochoa 11/05 [facility]( Orthope dic Clinic) [facility](Ph ysical Therapy Clinic) OUTPATIENT [id number] KEVEN WEAVER 11/05 Released w/o Limitations [facility]( Physica l Therapy Clinic) [facility](Ph ysical Therapy Clinic) OUTPATIENT [id number] DI CONTRERAS 11/07 Released with Work/Duty Limitations [facility]( Physica l Therapy Clinic) [facility](Ph ysical Therapy Clinic) OUTPATIENT [id number] CARLOS MCHUGH 11/10 Released w/o Limitations [facility]( Physica l Therapy Clinic) [facility](Sp med H1) OUTPATIENT [id number] f/u DANGELO AMOR 11/12 Released w/o Limitations [facility]( Spmed H1) [facility](Ph ysical Therapy Clinic) OUTPATIENT [id number] SÁNCHEZ NGUYEN 11/13 Released with Work/Duty Limitations [facility]( Physica l Therapy Clinic) [facility](Ph ysical Therapy Clinic) OUTPATIENT [id number] JUANJO YANEZ 11/20 Released with Work/Duty Limitations [facility]( Physica l Therapy Clinic) [facility](8t h ESB [employer] BAS) OUTPATIENT [id number] N/VICTOR MANUEL PEARCE 11/26 Released w/o Limitations [facility]( 8th ESB Batt[employer] BAS) [facility](Ph ysical Therapy Clinic) OUTPATIENT [id number] ROSE MARY NICHOLS 11/28 Released w/o Limitations [facility]( Physica l Therapy Clinic) [facility](Ph ysical Therapy Clinic) OUTPATIENT [id number] ASHU GARCIA 12/01 Released with Work/Duty Limitations [facility]( Physica l Therapy Clinic) [facility](Ph ysical Therapy Clinic) OUTPATIENT [id number] DOMINGUEZ CALDERA 12/03 Released with Work/Duty Limitations [facility]( Physica l Therapy Clinic) [facility](Ph ysical Therapy Clinic) OUTPATIENT [id number] CARLOS MCHUGH 12/04 Released w/o Limitations [facility]( Physica l Therapy Clinic) [facility](Ph ysical Therapy Clinic) OUTPATIENT [id number] ROSE MARY NICHOLS 12/10 Released w/o Limitations [facility]( Physica l Therapy Clinic) [facility](Sp med H1) OUTPATIENT [id number] DANGELO Purdy 12/11 Released w/o Limitations [facility]( Spmed H1) [facility](Ph [facility]ical Therapy [facility]) OUTPATIENT [id number] ROSE MARY NICHOLS 12/12 Released w/o Limitations [facility]( Physica [facility] Therapy [facility]) [facility]) OUTPATIENT [id number] ROSE MARY NICHOLS 12/19 Released w/o Limitations [facility]( [facility]) [facility]) OUTPATIENT [id number] ROSE MARY NICHOLS 12/24 Released w/o Limitations [facility]( [facility] Therapy [facility]) [facility](Or thopedic Clinic) OUTPATIENT [id number] JOHANN THAO 12/25 Released with Work/Duty Limitations [facility]( Orthope dic Clinic) [facility] Therapy [facility]) OUTPATIENT [id number] ROSE MARY NICHOLS 12/26 Released w/o Limitations [facility]( [facility] Therapy [facility]) [facility]) OUTPATIENT [id number] CARLOS MCHUGH 12/30 Released w/o Limitations [facility]( [facility] Therapy [facility]) [facility]) OUTPATIENT [id number] TRICIA VITAL 01/15 Released w/o Limitations [facility]( [facility] Therapy [facility]) [facility]) OUTPATIENT [id number] TRICIA VITAL 01/20 Released w/o Limitations [facility]( [facility] Therapy [facility]) [facility]) OUTPATIENT [id number] ZAHRAA TRICIA Louis 01/22 Released w/o Limitations [facility]( [facility] Therapy [facility]) [facility]) OUTPATIENT [id number] ZAHRAA TRICIA A 01/27 Released w/o Limitations [facility]( [facility] Therapy [facility]) [facility](Sp med H1) OUTPATIENT [id number] follow up DANGELO AMOR 01/28 Released with Work/Duty Limitations [facility]( Spmed H1) [facility]ical Therapy [facility]) OUTPATIENT [id number] CARLOS MCHUGH 01/30 Released w/o Limitations [facility]( [facility] Therapy [facility]) [facility]) OUTPATIENT [id number] DOMINGUEZ CALDERA 02/04 Released with Work/Duty Limitations [facility]( [facility]) [facility]) OUTPATIENT [id number] DOMINGUEZ CALDERA 02/06 Released with Work/Duty Limitations [facility]( [facility] Therapy [facility]) [facility]) OUTPATIENT [id number] DOMINGUEZ CALDERA 02/09 Released with Work/Duty Limitations [facility]( [facility]) [facility] Therapy [facility]) OUTPATIENT [id number] DOMINGUEZ CALDERA 02/11 Released with Work/Duty Limitations [facility]( [facility] Therapy [facility]) [facility]) OUTPATIENT [id number] DOMINGUEZ CALDERA 02/13 Released with Work/Duty Limitations [facility]( [facility] Therapy [facility]) [facility]) OUTPATIENT [id number] DOMINGUEZ CALDERA APURVA 02/16 Released with Work/Duty Limitations [facility]( [facility] Therapy [facility]) [facility]) OUTPATIENT [id number] SÁNCHEZ NGUYEN 02/17 Released with Work/Duty Limitations [facility]( [facility] Therapy [facility]) [facility] Therapy [facility]) OUTPATIENT [id number] SÁNCHEZ NGUYEN 02/19 Released with Work/Duty Limitations [facility]( [facility] Therapy [facility]) [facility](Or thopedic Clinic) OUTPATIENT [id number] f/u lt knee JOHANN THAO 02/25 Released with Work/Duty Limitations [facility]( [facility]ope [facility]) [facility]ical Therapy [facility]) OUTPATIENT [id number] CARLOS MCHUGH 02/27 Released w/o Limitations [facility]( Phys[facility] Therapy [facility]) [facility](Sp med H1) OUTPATIENT [id number] follow up DANGELO AMOR 03/02 Released w/o Limitations [facility]( Spmed H1) [facility]ical Therapy [facility]) OUTPATIENT [id number] SÁNCHEZ NGUYEN 03/02 Released with Work/Duty Limitations [facility]( [facility] Therapy [facility]) [facility]ical Therapy [facility]) OUTPATIENT [id number] SÁNCHEZ NGUYEN 03/04 Released with Work/Duty Limitations [facility]( Phys[facility] Therapy [facility]) [facility](Nu trition Clinic) OUTPATIENT [id number] Quick/B asic Wt Managem ent Info LORETTA ARGUELLO 03/06 Released w/o Limitations [facility]( Nutriti on Clinic) [facility](Ph [facility]sical Therapy Clinic) OUTPATIENT [id number] PATRICK, [facility] 03/09 Released with Work/Duty Limitations [facility]( [facility] Therapy [facility]ical Therapy [facility]) OUTPATIENT [id number] PATRICK [facility] 03/11 Released with Work/Duty Limitations [facility]( Phys[facility] Therapy [facility]) [facility]ical Therapy [facility]) OUTPATIENT [id number] PATRICK [facility] 03/13 Released with Work/Duty Limitations [facility]( [facility] Therapy [facility]) [facility]ical Therapy [facility]) OUTPATIENT [id number] [facility] 03/16 Released with Work/Duty Limitations [facility]( [facility] Therapy [facility]) [facility] Therapy [facility]) OUTPATIENT [id number] [facility] 03/18 Released with Work/Duty Limitations [facility]( [facility] Therapy [facility]) [facility]ical Therapy [facility]) OUTPATIENT [id number] CARLOS MHCUGH 03/23 Released w/o Limitations [facility]( Phys[facility] Therapy [facility]) [facility]ical Therapy [facility]) OUTPATIENT [id number] SHERIF OKEEFE 03/25 Released w/o Limitations [facility]( Physica [facility] Therapy [facility]) [facility](Sp med H1) OUTPATIENT [id number] F/U DANGELO AMOR 04/01 Released w/o Limitations [facility]( Spmed H1) [facility](Ph [facility]ical Therapy Clinic) OUTPATIENT [id number] SHERIF OKEEFE 04/03 Released w/o Limitations [facility]( [facility] Therapy [facility]) [facility]ical Therapy [facility]) OUTPATIENT [id number] VICTOR MANUEL AL 04/06 Released w/o Limitations [facility]( Phys[facility] Therapy [facility]) [facility](Nu trition Clinic) OUTPATIENT [id number] LILI Batista CONSUELO 04/07 Released w/o Limitations [facility]( Nutriti on Clinic) [facility](Ph [facility]ical Therapy [facility]) OUTPATIENT [id number] SHERIF OKEEFE 04/08 Released w/o Limitations [facility]( [facility] Therapy [facility]) [facility] Therapy [facility]) OUTPATIENT [id number] VICTOR MANUEL AL 04/13 Released w/o Limitations [facility]( [facility] Therapy [facility]) [facility] Therapy [facility]) OUTPATIENT [id number] VICTOR MANUEL AL 04/16 Released w/o Limitations [facility]( [facility] Therapy [facility]) [facility]ical Therapy [facility]) OUTPATIENT [id number] SHERIF OKEEFE 04/20 Released w/o Limitations [facility]( [facility] Therapy [facility]) [facility]ical Therapy [facility]) OUTPATIENT [id number] SHERIF OKEEFE 04/22 Released w/o Limitations [facility]( Phys[facility] Therapy [facility]) [facility](Or thopedic Clinic) OUTPATIENT [id number] F/U Lt Knee JOHANN THAO 04/23 Released with Work/Duty Limitations [facility]( Orthope dic Clinic) [facility](Ph [facility]sical Therapy Clinic) OUTPATIENT [id number] CARLOS MCHUGH 04/24 Released w/o Limitations [facility]( Physica [facility] Therapy [facility]) [facility](Or thopedic Clinic) OUTPATIENT [id number] f/u left knee KELLIE VEGA 05/12 Released w/o Limitations [facility]( Orthope dic Clinic) [facility]t h [facility]) OUTPATIENT [id number] FINAL CARLOS CLARKE 06/01 Released w/o Limitations [facility]( [facility]th [facility]) Procedures Combined list of: 1) Procedures from [facility] Veterans Affairs facilities going back up to thelast 18 months, not all VA non-surgical procedures are included; 2) All procedures from the Department of Defense facilities. Procedure Procedure Type Code Date Perfomer Comments Sourc e IMMUNIZATION ADMINISTRATION (INCLUDES PERCUTANEOUS, INTRADERMAL, SUBCUTANEOUS, OR INTRAMUSCULAR INJECTIONS); 1 VACCINE (SINGLE OR COMBINATION VACCINE/TOXOID) 8 [facility] PURE TONE AUDIOMETRY (THRESHOLD); AIR ONLY 8 [facility] OPHTHALMOLOGICAL SERVICES: MEDICAL EXAMINATION AND EVALUATION WITH INITIATION OF DIAGNOSTIC AND TREATMENT PROGRAM; INTERMEDIATE, NEW PATIENT 8 [facility] PHYSICAL THERAPY RE-EVALUATION 1 [facility] THERAPEUTIC PROCEDURE, 1 OR MORE AREAS, EACH 15 MINUTES; THERAPEUTIC EXERCISES TO DEVELOP STRENGTH AND ENDURANCE, RANGE OF MOTION AND FLEXIBILITY 1 [facility] THERAPEUTIC PROCEDURE, 1 OR MORE AREAS, EACH 15 MINUTES; THERAPEUTIC EXERCISES TO DEVELOP STRENGTH AND ENDURANCE, RANGE OF MOTION AND FLEXIBILITY 1 [facility] THERAPEUTIC PROCEDURE, 1 OR MORE AREAS, EACH 15 MINUTES; THERAPEUTIC EXERCISES TO DEVELOP STRENGTH AND ENDURANCE, RANGE OF MOTION AND FLEXIBILITY 1 [facility] THERAPEUTIC PROCEDURE, 1 OR MORE AREAS, EACH 15 MINUTES; THERAPEUTIC EXERCISES TO DEVELOP STRENGTH AND ENDURANCE, RANGE OF MOTION AND FLEXIBILITY 1 [facility] THERAPEUTIC PROCEDURE, 1 OR MORE AREAS, EACH 15 MINUTES; THERAPEUTIC EXERCISES TO DEVELOP STRENGTH AND ENDURANCE, RANGE OF MOTION AND FLEXIBILITY 1 [facility] MEDICAL NUTRITION THERAPY; RE-ASSESSMENT AND INTERVENTION, INDIVIDUAL, [id number] WITH THE PATIENT, EACH 15 MINUTES 1 [facility] THERAPEUTIC PROCEDURE, 1 OR MORE AREAS, EACH 15 MINUTES; THERAPEUTIC EXERCISES TO DEVELOP STRENGTH AND ENDURANCE, RANGE OF MOTION AND FLEXIBILITY 1 [facility] THERAPEUTIC PROCEDURE, 1 OR MORE AREAS, EACH 15 MINUTES; THERAPEUTIC EXERCISES TO DEVELOP STRENGTH AND ENDURANCE, RANGE OF MOTION AND FLEXIBILITY 1 [facility] THERAPEUTIC PROCEDURE, 1 OR MORE AREAS, EACH 15 MINUTES; THERAPEUTIC EXERCISES TO DEVELOP STRENGTH AND ENDURANCE, RANGE OF MOTION AND FLEXIBILITY 1 DoD PHYSICAL THERAPY RE-EVALUATION 1 DoD APPLICATION OF A MODALITY TO 1 OR MORE AREAS; ELECTRICAL STIMULATION (UNATTENDED) 1 DoD APPLICATION OF A MODALITY TO 1 OR MORE AREAS; ELECTRICAL STIMULATION (UNATTENDED) 1 DoD APPLICATION OF A MODALITY TO 1 OR MORE AREAS; ELECTRICAL STIMULATION (UNATTENDED) 1 DoD THERAPEUTIC PROCEDURE, 1 OR MORE AREAS, EACH 15 MINUTES; THERAPEUTIC EXERCISES TO DEVELOP STRENGTH AND ENDURANCE, RANGE OF MOTION AND FLEXIBILITY 1 DoD APPLICATION OF A MODALITY TO 1 OR MORE AREAS; ELECTRICAL STIMULATION (UNATTENDED) 1 DoD MEDICAL NUTRITION THERAPY; INITIAL ASSESSMENT AND INTERVENTION, INDIVIDUAL, [id number] WITH THE PATIENT, EACH 15 MINUTES 1 DoD APPLICATION OF A MODALITY TO 1 OR MORE AREAS; ELECTRICAL STIMULATION (UNATTENDED) 1 DoD APPLICATION OF A MODALITY TO 1 OR MORE AREAS; ELECTRICAL STIMULATION (UNATTENDED) 1 DoD PHYSICAL THERAPY RE-EVALUATION 1 DoD THERAPEUTIC PROCEDURE, 1 OR MORE AREAS, EACH 15 MINUTES; THERAPEUTIC EXERCISES TO DEVELOP STRENGTH AND ENDURANCE, RANGE OF MOTION AND FLEXIBILITY 1 DoD THERAPEUTIC PROCEDURE,1 OR MORE AREAS,EACH 15 MINUTES;NEUROMUSCULAR REEDUCATION OF MOVEMENT,BALANCE,COOR DINATION,KINESTHETIC SENSE,POSTURE,AND/OR PROPRIOCEPTION FOR SITTING AND/OR STANDING ACTIVITIES 1 DoD THERAPEUTIC PROCEDURE, 1 OR MORE AREAS, EACH 15 MINUTES; THERAPEUTIC EXERCISES TO DEVELOP STRENGTH AND ENDURANCE, RANGE OF MOTION AND FLEXIBILITY 1 DoD APPLICATION OF A MODALITY TO 1 OR MORE AREAS; ELECTRICAL STIMULATION (UNATTENDED) 1 DoD APPLICATION OF A MODALITY TO 1 OR MORE AREAS; ELECTRICAL STIMULATION (UNATTENDED) 1 DoD APPLICATION OF A MODALITY TO 1 OR MORE AREAS; ELECTRICAL STIMULATION (UNATTENDED) 1 DoD APPLICATION OF A MODALITY TO 1 OR MORE AREAS; ELECTRICAL STIMULATION (UNATTENDED) 1 DoD APPLICATION OF A MODALITY TO 1 OR MORE AREAS; ELECTRICAL STIMULATION (UNATTENDED) 1 DoD PHYSICAL THERAPY RE-EVALUATION 1 DoD APPLICATION OF A MODALITY TO 1 OR MORE AREAS; HOT OR COLD PACKS 1 DoD APPLICATION OF A MODALITY TO 1 OR MORE AREAS; HOT OR COLD PACKS 1 DoD APPLICATION OF A MODALITY TO 1 OR MORE AREAS; HOT OR COLD PACKS 1 DoD APPLICATION OF A MODALITY TO 1 OR MORE AREAS; HOT OR COLD PACKS 1 DoD PHYSICAL THERAPY RE-EVALUATION 1 DoD APPLICATION OF A MODALITY TO 1 OR MORE AREAS; ELECTRICAL STIMULATION (UNATTENDED) 1 DoD THERAPEUTIC PROCEDURE, 1 OR MORE AREAS, EACH 15 MINUTES; THERAPEUTIC EXERCISES TO DEVELOP STRENGTH AND ENDURANCE, RANGE OF MOTION AND FLEXIBILITY 1 DoD APPLICATION OF A MODALITY TO 1 OR MORE AREAS; ELECTRICAL STIMULATION (UNATTENDED) 1 DoD THERAPEUTIC PROCEDURE,1 OR MORE AREAS,EACH 15 MINUTES;NEUROMUSCULAR REEDUCATION OF MOVEMENT,BALANCE,COOR DINATION,KINESTHETIC SENSE,POSTURE,AND/OR PROPRIOCEPTION FOR SITTING AND/OR STANDING ACTIVITIES 1 DoD APPLICATION OF A MODALITY TO 1 OR MORE AREAS; HOT OR COLD PACKS 1 DoD PHYSICAL THERAPY RE-EVALUATION 1 DoD THERAPEUTIC PROCEDURE, 1 OR MORE AREAS, EACH 15 MINUTES; THERAPEUTIC EXERCISES TO DEVELOP STRENGTH AND ENDURANCE, RANGE OF MOTION AND FLEXIBILITY 1 DoD APPLICATION OF A MODALITY TO 1 OR MORE AREAS; HOT OR COLD PACKS 1 DoD APPLICATION OF A MODALITY TO 1 OR MORE AREAS; HOT OR COLD PACKS 1 DoD APPLICATION OF A MODALITY TO 1 OR MORE AREAS; HOT OR COLD PACKS 1 DoD THERAPEUTIC PROCEDURE,1 OR MORE AREAS,EACH 15 MINUTES;NEUROMUSCULAR REEDUCATION OF MOVEMENT,BALANCE,COOR DINATION,KINESTHETIC SENSE,POSTURE,AND/OR PROPRIOCEPTION FOR SITTING AND/OR STANDING ACTIVITIES 1 DoD PHYSICAL THERAPY RE-EVALUATION 1 DoD APPLICATION OF A MODALITY TO 1 OR MORE AREAS; HOT OR COLD PACKS 1 DoD APPLICATION OF A MODALITY TO 1 OR MORE AREAS; HOT OR COLD PACKS 1 DoD POSTOPERATIVE FOLLOW-UP VISIT, NORMALLY INCLUDED IN THE SURGICAL PACKAGE, INDICATE THAT EVALUATION & MANAGEMENT SERVICE WAS PERFORMED DURING A POSTOPERATIVE PERIOD REASON RELATED ORIGINAL PROCEDURE 1 DoD APPLICATION OF A MODALITY TO 1 OR MORE AREAS; HOT OR COLD PACKS 1 DoD THERAPEUTIC PROCEDURE,1 OR MORE AREAS,EACH 15 MINUTES;NEUROMUSCULAR REEDUCATION OF MOVEMENT,BALANCE,COOR DINATION,KINESTHETIC SENSE,POSTURE,AND/OR PROPRIOCEPTION FOR SITTING AND/OR STANDING ACTIVITIES 1 DoD APPLICATION OF A MODALITY TO 1 OR MORE AREAS; HOT OR COLD PACKS 1 DoD THERAPEUTIC PROCEDURE,1 OR MORE AREAS,EACH 15 MINUTES;NEUROMUSCULAR REEDUCATION OF MOVEMENT,BALANCE,COOR DINATION,KINESTHETIC SENSE,POSTURE,AND/OR PROPRIOCEPTION FOR SITTING AND/OR STANDING ACTIVITIES 1 DoD APPLICATION OF A MODALITY TO 1 OR MORE AREAS; HOT OR COLD PACKS 1 DoD APPLICATION OF A MODALITY TO 1 OR MORE AREAS; HOT OR COLD PACKS 1 DoD PHYSICAL THERAPY RE-EVALUATION 1 DoD THERAPEUTIC PROCEDURE,1 OR MORE AREAS,EACH 15 MINUTES;NEUROMUSCULAR REEDUCATION OF MOVEMENT,BALANCE,COOR DINATION,KINESTHETIC SENSE,POSTURE,AND/OR PROPRIOCEPTION FOR SITTING AND/OR STANDING ACTIVITIES 1 DoD THERAPEUTIC PROCEDURE, 1 OR MORE AREAS, EACH 15 MINUTES; THERAPEUTIC EXERCISES TO DEVELOP STRENGTH AND ENDURANCE, RANGE OF MOTION AND FLEXIBILITY 1 DoD APPLICATION OF A MODALITY TO 1 OR MORE AREAS; HOT OR COLD PACKS 1 DoD APPLICATION OF A MODALITY TO 1 OR MORE AREAS; HOT OR COLD PACKS 1 DoD APPLICATION OF A MODALITY TO 1 OR MORE AREAS; HOT OR COLD PACKS 1 DoD POSTOPERATIVE FOLLOW-UP VISIT, NORMALLY INCLUDED IN THE SURGICAL PACKAGE, INDICATE THAT EVALUATION & MANAGEMENT SERVICE WAS PERFORMED DURING A POSTOPERATIVE PERIOD REASON RELATED ORIGINAL PROCEDURE 1 DoD APPLICATION OF A MODALITY TO 1 OR MORE AREAS; HOT OR COLD PACKS 1 DoD APPLICATION OF A MODALITY TO 1 OR MORE AREAS; HOT OR COLD PACKS 1 DoD THERAPEUTIC PROCEDURE, 1 OR MORE AREAS, EACH 15 MINUTES; THERAPEUTIC EXERCISES TO DEVELOP STRENGTH AND ENDURANCE, RANGE OF MOTION AND FLEXIBILITY 1 DoD APPLICATION OF A MODALITY TO 1 OR MORE AREAS; HOT OR COLD PACKS 1 DoD APPLICATION OF A MODALITY TO 1 OR MORE AREAS; HOT OR COLD PACKS 1 DoD APPLICATION OF A MODALITY TO 1 OR MORE AREAS; HOT OR COLD PACKS 1 [facility] UNLISTED SPECIAL SERVICE, PROCEDURE OR REPORT 1 [facility] CRUTCHES UNDERARM, WOOD, ADJUSTABLE OR FIXED, PAIR, WITH PADS, TIPS AND HANDGRIPS 1 [facility] THERAPEUTIC PROCEDURE, 1 OR MORE AREAS, EACH 15 MINUTES; THERAPEUTIC EXERCISES TO DEVELOP STRENGTH AND ENDURANCE, RANGE OF MOTION AND FLEXIBILITY 0 [facility] APPLICATION OF A MODALITY TO 1 OR MORE AREAS; HOT OR COLD PACKS 0 [facility] PHYSICAL THERAPY EVALUATION 0 [facility] Physical Therapy: ___ Se ion Segments, 15 Minutes Each Physical Therapy: ___ Session Segments, 15 Minutes Each [id number] 1 [facility] Cold Packs Modalities Cryotherapy Cold Packs 28478 1 KEVEN TRUONG [facility] Physical Therapy: ___ Se ion Segments, 15 Minutes Each Physical Therapy: ___ Session Segments, 15 Minutes Each 32385 1 KEVEN TRUONG [facility] Physical Therapy Neuromuscular Re-education Physical Therapy Neuromuscular Re-education 73128 1 [place] [facility] Mod[facility] Cold Packs Modalities Cryotherapy Cold Packs 67984 1 [place] [facility] Physical Therapy: ___ Se ion Segments, 15 Minutes Each Physical Therapy: ___ Session Segments, 15 Minutes Each 22211 1 [place] ROSE MARY [facility] Modalities Cryotherapy Cold Packs Modalities Cryotherapy Cold Packs 86149 1 SHERIF MONROY [facility] Physical Therapy: ___ Se ion Segments, 15 Minutes Each Physical Therapy: ___ Session Segments, 15 Minutes Each 06213 1 SHERIF MONROY [facility] Modalities Cryotherapy Cold Packs Modalities Cryotherapy Cold [place]acks 49380 1 SHERIF MONROY [facility] Physical Therapy: ___ Se ion Segments, 15 Minutes Each Physical Therapy: ___ Session Segments, 15 Minutes Each 61411 1 SHERIF MONROY [facility] Physical Medicine Physical Therapy Re-Evaluation Physical Medicine Physical Therapy Re-Evaluation 64939 1 CARLOS MCHUGH [facility] Physical Therapy Neuromuscular Re-education Physical Therapy Neuromuscular Re-education 55754 1 [facility] Mod[facility] Cryotherapy Cold [place] Modalities Cryotherapy Cold Packs 13398 1 [facility] Physical Therapy: ___ Se ion Segments, 15 Minutes Each Physical Therapy: ___ Session Segments, 15 Minutes Each 51988 1 NICHOLS ROSE MARY [facility] Modalities Cryotherapy Cold [place]acks Modalities Cryotherapy Cold [place]acks 72386 1 VERENICE DOMINGUEZ MIXON [facility] Physical Therapy Neuromuscular Re-education Physical Therapy Neuromuscular Re-education 05524 1 VERENICE DOMINGUEZ BRAVOE [facility] Physical Therapy: ___ Se ion Segments, 15 Minutes Each Physical Therapy: ___ Session Segments, 15 Minutes Each 23407 1 DOMINGUEZ CALDERA [facility] Modalities Cryotherapy Cold [place]acks Modalities Cryotherapy Cold Packs 50756 1 SHERIF MONROY [facility] Physical Therapy: ___ Se ion Segments, 15 Minutes Each Physical Therapy: ___ Session Segments, 15 Minutes Each 04393 1 SHERIF MONROY [facility] Physical Therapy: ___ Se ion Segments, 15 Minutes Each Physical Therapy: ___ Session Segments, 15 Minutes Each 68359 1 SHERIF MONROY [facility] Modalities Cryotherapy Cold Packs Modalities Cryotherapy Cold Packs 17789 1 SHERIF MONROY [facility] Physical Therapy: ___ Se ion Segments, 15 Minutes Each Physical Therapy: ___ Session Segments, 15 Minutes Each 63996 1 SHERIF MONROY [facility] Modalities Cryotherapy Cold Packs Modalities Cryotherapy Cold Packs 96583 1 SHERIF MONROY Modalities Cryotherapy [place] Modalities Cryotherapy Cold Packs 38197 1 SHERIF MONROY [facility] Physical Therapy: ___ Se ion Segments, 15 Minutes Each Physical Therapy: ___ Session Segments, 15 Minutes Each 94341 1 SHERIF MONROY [facility] Modalities Cryotherapy Cold [place]acks Modalities Cryotherapy Cold Packs 59068 1 SHERIF MONROY Exercises A isted Exercises For ROM Exercises Assisted Exercises For ROM 36190 1 SHERIF MONROY Physical Therapy: ___ Se ion Segments, 15 Minutes Each Physical Therapy: ___ Session Segments, 15 Minutes Each 10100 1 SHERIF MONROY Physical Medicine Physical Therapy Evaluation Physical Medicine Physical Therapy Evaluation 58319 1 KEVEN TRUONG [facility] Modalities Cryotherapy Cold Packs Modalities Cryotherapy Cold Packs 02291 1 SHERIF MONROY Exercises A isted Exercises For ROM Exercises Assisted Exercises For ROM 34528 1 SHERIF MONROY Physical Therapy: ___ Se ion Segments, 15 Minutes Each Physical Therapy: ___ Session Segments, 15 Minutes Each 54210 1 SHERIF MONROY Physical Therapy Gait Training Physical Therapy Gait Training 88820 1 FLOYD DAMON [facility] Crutches, underarm, wood, adjustable or fixed, pair, with pads, tips and handgrips 1 FLOYD DAMON Modalities Cryotherapy [place]acks Modalities Cryotherapy Cold Packs 06064 0 GEO DRAPER [facility] Physical Therapy: ___ Se ion Segments, 15 Minutes Each Physical Therapy: ___ Session Segments, 15 Minutes Each 82888 0 [employer] DRAP[employer] Modalities Cryotherapy Cold Packs Modalities Cryotherapy Cold Packs 33132 0 TAPGEO SANTACRUZ [facility] Physical Therapy: ___ Se ion Segments, 15 Minutes Each Physical Therapy: ___ Session Segments, 15 Minutes Each 49931 0 GEO DRAPER [facility] Physical Medicine Physical Therapy Evaluation Physical Medicine Physical Therapy Evaluation 29854 0 JOELLE JHAVERI [facility] Physical Medicine Physical Therapy Re-Evaluation Physical Medicine Physical Therapy Re-Evaluation 07648 1 CARLOS MCHUGH [facility] Physical Therapy: ___ Se ion Segments, 15 Minutes Each Physical Therapy: ___ Session Segments, 15 Minutes Each 73927 1 SHELIAJESSICAEFRAIN VISHAL [facility] Physical Therapy: ___ Se ion Segments, 15 Minutes Each Physical Therapy: ___ Session Segments, 15 Minutes Each 25365 1 SHERIF OKEEFE [facility] Physical Therapy: ___ Se ion Segments, 15 Minutes Each Physical Therapy: ___ Session Segments, 15 Minutes Each 85001 1 VICTOR MANUEL AL [facility] Medical Nutrition Therapy Re-a e ment, Intervention Medical Nutrition Therapy Re-assessment, Intervention 57494 1 LILI MOCK [facility] Physical Therapy: ___ Se ion Segments, 15 Minutes Each Physical Therapy: ___ Session Segments, 15 Minutes Each 31449 1 VICTOR MANUEL AL [facility] Physical Therapy: ___ Se ion Segments, 15 Minutes Each Physical Therapy: ___ Session Segments, 15 Minutes Each 29278 1 SHERIF OKEEFE [facility] Physical Therapy: ___ Se ion Segments, 15 Minutes Each Physical Therapy: ___ Session Segments, 15 Minutes Each 89176 1 VICTOR MANUEL AL [facility] Physical Therapy: ___ Se ion Segments, 15 Minutes Each Physical Therapy: ___ Session Segments, 15 Minutes Each 24228 1 ASHUTOSH STANTON [facility] Physical Therapy: ___ Se ion Segments, 15 Minutes Each Physical Therapy: ___ Session Segments, 15 Minutes Each 80683 1 SHERIF OKEEFE [facility] Physical Medicine Physical Therapy Re-Evaluation Physical Medicine Physical Therapy Re-Evaluation 44245 1 CARLOS MCHUGH [facility] Modalities Electrical Stimulation Unattended Modalities Electrical Stimulation Unattended 60590 1 SÁNCHEZ NGUYEN [facility] Physical Therapy Neuromuscular Re-education Physical Therapy Neuromuscular Re-education 81444 1 SÁNCHEZ NGUYEN [facility] Physical Therapy: ___ Se ion Segments, 15 Minutes Each Physical Therapy: ___ Session Segments, 15 Minutes Each 93162 1 SÁNCHEZ NGUYEN [facility] Modalities Electrical Stimulation Unattended Modalities Electrical Stimulation Unattended 60686 1 SÁNCHEZ NGUYEN [facility] Physical Therapy Neuromuscular Re-education Physical Therapy Neuromuscular Re-education 90132 1 [facility] Physical Therapy: ___ Se ion Segments, 15 Minutes Each Physical Therapy: ___ Session Segments, 15 Minutes Each 95017 1 [facility] Modalities Electrical Stimulation Unattended Modalities Electrical Stimulation Unattended [id number] 1 [facility] Neuromuscular Re-education Physical Therapy Neuromuscular Re-education 78554 1 [facility]: ___ Se ion Segments, 15 Minutes Each Physical Therapy: ___ Session Segments, 15 Minutes Each [id number] 1 [facility] Medical Nutrition Therapy Initial A e ment, Intervention Medical Nutrition Therapy Initial Assessment, Intervention 40202 1 LORETTA ARGUELLO [facility] Neuromuscular Re-education Physical Therapy Neuromuscular Re-education 08855 1 [facility] Modalities Electrical Stimulation Unattended Modalities Electrical Stimulation Unattended 10433 1 [facility]: ___ Se ion Segments, 15 Minutes Each Physical Therapy: ___ Session Segments, 15 Minutes Each 22178 1 [facility] Modalities Electrical Stimulation Unattended Modalities Electrical Stimulation Unattended 64232 1 [facility] Neuromuscular Re-education Physical Therapy Neuromuscular Re-education 68187 1 [facility]: ___ Se ion Segments, 15 Minutes Each Physical Therapy: ___ Session Segments, 15 Minutes Each 20888 1 [facility] Modalities Electrical Stimulation Unattended Modalities Electrical Stimulation Unattended 07319 1 [facility] Neuromuscular Re-education Physical Therapy Neuromuscular Re-education 37804 1 [facility]: ___ Se ion Segments, 15 Minutes Each Physical Therapy: ___ Session Segments, 15 Minutes Each 30950 1 PATRICK, [facility] Modalities Electrical Stimulation Unattended Modalities Electrical Stimulation Unattended 49550 1 PATRICK [facility] Physical Therapy: ___ Se ion Segments, 15 Minutes Each Physical Therapy: ___ Session Segments, 15 Minutes Each 93988 1 PATRICK [facility] Physical Therapy Neuromuscular Re-education Physical Therapy Neuromuscular Re-education 76774 1 [facility] Physical Therapy Re-Evaluation Physical Medicine Physical Therapy Re-Evaluation 98436 1 CARLOS MCHUGH [facility] Modalities Electrical Stimulation Unattended Modalities Electrical Stimulation Unattended 44073 1 [facility] Neuromuscular Re-education Physical Therapy Neuromuscular Re-education 03083 1 [facility] Physical Therapy: ___ Se ion Segments, 15 Minutes Each Physical Therapy: ___ Session Segments, 15 Minutes Each 94955 1 [facility] Neuromuscular Re-education Physical Therapy Neuromuscular Re-education 21469 1 [facility] Modalities Electrical Stimulation Unattended Modalities Electrical Stimulation Unattended 24611 1 PATRICK [facility] Physical Therapy: ___ Se ion Segments, 15 Minutes Each Physical Therapy: ___ Session Segments, 15 Minutes Each 03035 1 PATRICK [facility] Modalities Electrical Stimulation Unattended Modalities Electrical Stimulation Unattended 86535 1 DOMINGUEZ CALDERA [facility] Physical Therapy: ___ Se ion Segments, 15 Minutes Each Physical Therapy: ___ Session Segments, 15 Minutes Each 14906 1 VERENICE, DOMINGUEZ APURVA [facility] Modalities Electrical Stimulation Unattended Modalities Electrical Stimulation Unattended 43818 1 VERENICE, DOMINGUEZ APURVA [facility] Physical Therapy: ___ Se ion Segments, 15 Minutes Each Physical Therapy: ___ Session Segments, 15 Minutes Each 83358 1 VERENICE, DOMINGUEZ APURVA [facility] Physical Therapy: ___ Se ion Segments, 15 Minutes Each Physical Therapy: ___ Session Segments, 15 Minutes Each 59781 1 DOMINGUEZ CALDERA Modalities Electrical Stimulation Unattended Modalities Electrical Stimulation Unattended 04667 1 DOMINGUEZ CALDERA Modalities Electrical Stimulation Unattended Modalities Electrical Stimulation Unattended 85495 1 DOMINGUEZ CALDERA Physical Therapy: ___ Se ion Segments, 15 Minutes Each Physical Therapy: ___ Session Segments, 15 Minutes Each 55803 1 DOMINGUEZ CALDERA Modalities Electrical Stimulation Unattended Modalities Electrical Stimulation Unattended 06848 1 DOMINGUEZ CALDERA Physical Therapy: ___ Se ion Segments, 15 Minutes Each Physical Therapy: ___ Session Segments, 15 Minutes Each 87831 1 DOMINGUEZ CALDERA Modalities Electrical Stimulation Unattended Modalities Electrical Stimulation Unattended 35768 1 DOMINGUEZ CALDERA Physical Therapy: ___ Se ion Segments, 15 Minutes Each Physical Therapy: ___ Session Segments, 15 Minutes Each 29683 1 DOMINGUEZ CALDERA [facility] Physical Therapy Re-Evaluation Physical Medicine Physical Therapy Re-Evaluation 88699 1 CARLOS MCHUGH [facility] [place] Modalities Cryotherapy [place] 18708 1 [facility] Physical Therapy: ___ Se ion Segments, 15 Minutes Each Physical Therapy: ___ Session Segments, 15 Minutes Each 68570 1 [facility] Mod[facility] Cryotherapy [place] Modalities Cryotherapy [place] 01487 1 [facility] Physical Therapy: ___ Se ion Segments, 15 Minutes Each Physical Therapy: ___ Session Segments, 15 Minutes Each 30173 1 [facility] Mod[facility] Cryotherapy [place] Modalities Cryotherapy [place] 63621 1 [facility] Physical Therapy: ___ Se ion Segments, 15 Minutes Each Physical Therapy: ___ Session Segments, 15 Minutes Each 21315 1 [facility] Mod[facility] Cryotherapy [place] Modalities Cryotherapy [place] 73676 1 TRICIA VITAL [facility] Modalities Electrical Stimulation Unattended Modalities Electrical Stimulation Unattended 13767 1 TRICIA VITAL [facility] Physical Therapy: ___ Se ion Segments, 15 Minutes Each Physical Therapy: ___ Session Segments, 15 Minutes Each 73270 1 TRICIA VITAL [facility] Physical Therapy Re-Evaluation Physical Medicine Physical Therapy Re-Evaluation 97998 1 LOLITA CARLOS MIXON [facility] Modalities Electrical Stimulation Unattended Modalities Electrical Stimulation Unattended 46922 1 ROSE MARY NICHOLS [facility] Modalities Cryotherapy [place] Modalities Cryotherapy [place] 49149 1 ROSE MARY NICHOLS [facility] Neuromuscular Re-education Physical Therapy Neuromuscular Re-education 01780 1 ROSE MARY NICHOLS [facility] Physical Therapy: ___ Se ion Segments, 15 Minutes Each Physical Therapy: ___ Session Segments, 15 Minutes Each 84605 1 [facility] Mod[facility] Cryotherapy [place] Modalities Cryotherapy [place] 82520 1 [facility] Neuromuscular Re-education Physical Therapy Neuromuscular Re-education 35651 1 ROSE MARY NICHOLS [facility] Physical Therapy: ___ Se ion Segments, 15 Minutes Each Physical Therapy: ___ Session Segments, 15 Minutes Each 90071 1 ROSE MARY NICHOLS [facility] Modalities Electrical Stimulation Unattended Modalities Electrical Stimulation Unattended 13235 1 [facility] Neuromuscular Re-education Physical Therapy Neuromuscular Re-education 66438 1 [facility] Modalities Cryotherapy [place] Modalities Cryotherapy [place] 76694 1 ROSE MARY NICHOLS [facility] Physical Therapy: ___ Se ion Segments, 15 Minutes Each Physical Therapy: ___ Session Segments, 15 Minutes Each 90373 1 ROSE MARY N[facility]OLSTH [facility] Modalities Cryotherapy [place] Modalities Cryotherapy [place] 79656 1 NICHOLS ROSE MARY [facility] Physical Therapy: ___ Se ion Segments, 15 Minutes Each Physical Therapy: ___ Session Segments, 15 Minutes Each 54459 1 NICHOLS ROSE MARY [facility] Physical Medicine Physical Therapy Re-Evaluation Physical Medicine Physical Therapy Re-Evaluation 27506 1 MCHUGH CARLOS MIXON [facility] Modalities Cryotherapy [place] Modalities Cryotherapy [place] 18121 1 DOMINGUEZ CALDERA [facility] Physical Therapy: ___ Se ion Segments, 15 Minutes Each Physical Therapy: ___ Session Segments, 15 Minutes Each 81603 1 VERENICEDOMINGUEZ [facility] Modalities Cryotherapy [place] Modalities Cryotherapy [place] 16565 1 ASHU GARCIA [facility] Physical Therapy: ___ Se ion Segments, 15 Minutes Each Physical Therapy: ___ Session Segments, 15 Minutes Each 70412 1 ASHU GARCIA [facility] Modalities Cryotherapy [place] Modalities Cryotherapy [place] 43064 1 [place] ROSE MARY [facility] Physical Therapy: ___ Se ion Segments, 15 Minutes Each Physical Therapy: ___ Session Segments, 15 Minutes Each 78275 1 [place] ROSE MARY [facility] Modalities Cryotherapy [place] Modalities Cryotherapy [place] 08980 1 JUANJO YANEZ [facility] Physical Therapy: ___ Se ion Segments, 15 Minutes Each Physical Therapy: ___ Session Segments, 15 Minutes Each 39783 1 JUANJO YANEZ [facility] Neuromuscular Re-education Physical Therapy Neuromuscular Re-education 48848 1 [facility] Modalities Cryotherapy [place] Modalities Cryotherapy [place] 51087 1 [facility] Therapy: ___ Se ion Segments, 15 Minutes Each Physical Therapy: ___ Session Segments, 15 Minutes Each 25683 1 [facility] Physical Therapy Re-Evaluation Physical Medicine Physical Therapy Re-Evaluation 70482 1 CARLOS MCHUGH [facility] Modalities Cryotherapy [place] Modalities Cryotherapy [place] 32927 1 CONTRERASDI KIM CATIE [facility] Physical Therapy: ___ Se ion Segments, 15 Minutes Each Physical Therapy: ___ Session Segments, 15 Minutes Each 23031 1 DI CONTRERAS [facility] Modalities Cryotherapy [place] Modalities Cryotherapy [place] 77211 1 LEENGUYEN KEVEN DEONDRE [facility] Physical Therapy: ___ Se ion Segments, 15 Minutes Each Physical Therapy: ___ Session Segments, 15 Minutes Each 40112 1 LEENGUYEN KEVEN DEONDRE [facility] Modalities Cryotherapy [place] Modalities Cryotherapy [place] 70099 1 ALEXI KEVEN DEONDRE [facility] Physical Therapy: ___ Se ion Segments, 15 Minutes Each Physical Therapy: ___ Session Segments, 15 Minutes Each 84712 1 KEVEN TRUONG [facility] Therapy Neuromuscular Re-education Physical Therapy Neuromuscular Re-education 97380 1 ROSE MARY NICHOLS [facility] Modalities Cryotherapy [place] Modalities Cryotherapy [place] 95726 1 ROSE MARY NICHOLS [facility] Social History Combined list of available smoking, tobacco, and other social history from Department of Defense and Veterans Affairs facilities. Social History Type Response Date Comment [facility] e Tobacco smoking status [facility]-TOBACCO NEVER USED 03/13/2021 [facility] History of tobacco use MA-TOBACCO QUIT 1 TO < 5 YRS 02/19/2018 [facility] History of tobacco use QUIT TOBACCO >12 MO and <7 YRS AGO 06/03/2017 [facility] History of tobacco use QUIT TOBACCO >12 MO and <7 YRS AGO 11/23/2016 [facility] This section is an empty social history section. [facility]
== END 2025-01-02 10:13 | disposition home or self-care (01) ==
LOC: CHSIMG 10:17
PROVIDERS: PCP Internal Medicine; Visit Provider Internal Medicine
DX: R31.9 Hematuria, unspecified (principal); R10.9 Unspecified abdominal pain
CPT/HCPCS: 74176

== ENCOUNTER 2025-03-12 00:48 | Day surgery (SDC) | payer OTHER, SELFPAY ==
[2025-02-27 09:44] VITALS: BMI 50.3
--- OUTSIDE RECORDS SUMMARY | 2025-03-12 00:51 | XMS_ITS | Clinical Summary ---
Author Organization [facility] Address [address] [place] [address] Phone Care Team Providers Care Flying Ii Instructor Name Role Phone Pacheco Jean MD Primary Care Provider [phone] Allergies No known active allergies Medications traMADol [...] Comments Blood Pressure 144/48 05/14/2022 6:03 PM CERAMICS ENGINEER Pulse 94 05/14/2022 6:03 PM CERAMICS ENGINEER Temperature 37.8 C (100.1 F) 05/14/2022 4:53 PM CERAMICS ENGINEER Respiratory Rate 16 05/14/2022 4:53 PM CERAMICS ENGINEER Oxygen Saturation 97% 05/14/2022 6:03 PM CERAMICS ENGINEER Inhaled Oxygen Concentration - - Weight 127 kg (280 lb) 05/14/2022 4:53 PM CERAMICS ENGINEER Height 167.6 cm (5' 6) 05/14/2022 4:53 PM CERAMICS ENGINEER Body Mass Index 45.19 05/14/2022 4:53 PM CERAMICS ENGINEER Plan of Treatment Health Maintenance Due Date Last Done Comments Hepatitis C Virus (HCV) Screening 1986 Human Papillomavirus (HPV) Immunization (1 - 3-dose SCDM series) 2013 Influenza Immunization (#1) 02/19/202511/2018, 03/21/2019, 04/26/2017, Additional history exists SARS-COV-2 Immunization ( season) 2025 Respiratory Syncytial Virus (RSV) Immunization (Adult) (1 [...] patient's age to complete this topic Insurance [facility] [employer] Advance Directives * Full Code (Latest Code Status on File) Date Activated Date Inactivated Comments 03/02/2022 10:40 PM 03/05/2022 3:13 PM CPR-Full Tr eatment: FULL ARREST: Attempt Resuscitation/CPR wit intubation and mechanical ventilation. PRE-ARREST: Use entire range of life support measures to stabilize the patient. Care Teams Flying Ii Instructor Relationship Specialty Start Date End Date Pacheco Jean MD [address] [place] [address] PCP - General Internal Medicine 02/17/22
[2025-03-12 08:16] VITALS: BP 137/92; PULSE 68; RESP 18; TEMP 36.4; O2SAT 100
[2025-03-12] MEDS: LACTATED RINGERS 1,000 ML 150 ML IV CONT ×2 (08:25→09:59)
--- NOTE | 2025-03-12 09:43 | WPDANESEPPF ---
Anes - Initial Pre Proc Eval Procedure: Operation Date: 03/12/25 09:30 Proposed Procedures p Diagnostic Colonoscopy - Albaro Hough DO Date/Time: 03/12/25 09:43 Surgeon: Albaro Hough DO Pre Op Diagnosis: rectal wall thickening Patient Data Age: 39 Gender: M Height: 1.68 m Weight: 140.1 kg Last Vital Signs Temp 97.5 F L 03/12/25 08:16 Pulse 68 03/12/25 08:16 Resp 18 03/12/25 08:16 BP 137/92 H 03/12/25 08:16 Pulse Ox 100 03/12/25 08:16 O2 Del Method Room Air 03/12/25 08:16 Allergies Allergy/AdvReac Type Severity Reaction Status Date / Time No Known Allergies Allergy Verified 02/27/25 09:43 Home Medications ?Medication ?Instructions ?Recorded ?Confirmed ?Type ibuprofen 800 mg tablet 800 mg PO DAILY PRN pain 02/27/25 02/27/25 History Patient hx anesthesia problems: none Family hx anesthesia problems: none Results Review: All pre-operative results and documents have been reviewed as part of the pre-operative evaluation. [facility] Past Medical History Medical History Cellulitis of jaw Hearing loss Generalized headaches Weight gain Surgical History Surgical History History of reconstruction of anterior cruciate ligament tear Social History Social History (Updated 04/12/22 @ 11:13 by Dina Rowley NP) Years smoked: 10 Smoking status: Former smoker Tobacco type: cigarettes Substance use type: does not use Living arrangements: with family Additional living arrangements comments: with sp Gender identity (if verbalized by the patient): Male Anes - Eval Final PreProcedure Day of Procedure 03/12/25 09:43 Patient weight: morbidly obese Lungs: normal air movement Airway: Mallampati scale class II Neurological: alert and oriented Last oral intake: >/= 8 hours ASA classification: III Emergent: no Anesthetic plan: proceed Anesthesia type and monitoring: general GIVS and standard monitoring Results Review: All pre-operative results and documents have been reviewed as part of the pre-operative evaluation. BMI 50, ex smoker, can walk 1-2 fos, no cp or sob. Informed Consent: The patient's anesthetic plan and its attendant risks and benefits were discussed with the patient/family/POA. Questions were solicited and answers provided to the satisfaction of the patient/family/POA.
--- NOTE | 2025-03-12 09:43 | PM.IMHP ---
H&P: HPI History of Present Illness Date/Time: 03/12/25 09:43 Chief Complaint: abnormal CT abdomen Narrative: this is a 39-year-old man who presents for colonoscopy. He has never had a colonoscopy before. He recently had a CT performed because he was having left flank pain and this showed evidence of rectal wall thickening. He denies any history of hematochezia or melena. He denies family history of colon cancer. He denies any rectal pain. Review of Systems Review of Systems: All systems reviewed & are unremarkable except as noted in HPI and below Constitutional: Constitutional: Denies chills, Denies fever(s), Denies headache(s) and Denies weight loss Eyes: Eyes: Denies change in vision ENT: Denies dizziness, Denies headache(s), Denies neck mass and Denies throat swelling Cardiovascular: Cardiovascular: Denies chest pain, Denies lightheadedness and Denies dyspnea Respiratory: Respiratory: Denies cough, Denies dyspnea and Denies wheezing Gastrointestinal: Gastrointestinal: Denies abdominal pain, Denies change in bowel habits, Denies nausea and Denies vomiting Genitourinary: Genitourinary: Denies hematuria and Denies dysuria Musculoskeletal: Musculoskeletal: Reports as per HPI Integumentary/Breasts: Skin/Breast: Reports as per HPI Neurologic: Denies dizziness and Denies headache(s) Allergic/Immunologic: Allergic/Immunologic: Denies throat swelling and Denies wheezing PMFSH Past Medical History Medical History Cellulitis of jaw Hearing loss Generalized headaches Weight gain Surgical History Surgical History History of reconstruction of anterior cruciate ligament tear Social History Social History (Updated 04/12/22 @ 11:13 by Dina Rowley NP) Years smoked: 10 Smoking status: Former smoker Tobacco type: cigarettes Substance use type: does not use Living arrangements: with family Additional living arrangements comments: with sp Gender identity (if verbalized by the patient): Male Meds Home Medications and Allergies Home Medications ?Medication ?Instructions ?Recorded ?Confirmed ?Type ibuprofen 800 mg tablet 800 mg PO DAILY PRN pain 02/27/25 02/27/25 History Allergies Allergy/AdvReac Type Severity Reaction Status Date / Time No Known Allergies Allergy Verified 02/27/25 09:43 Vital Signs Vital Signs - 24 hr 03/12/25 08:16 Temperature 97.5 F L Pulse Rate 68 Respiratory Rate 18 Blood Pressure 137/92 H Pulse Oximetry 100 Oxygen Delivery Room Air Exam Const: General: no acute distress and alert Orientation/consciousness: patient oriented x3 HENMT: Head: normocephalic and atraumatic Ears: hearing grossly normal bilaterally Face/Nose/Sinus: Normal nares present Mouth: Yes Normal oral and palatal mucosa present Eyes: Periorbital: periorbital findings normal Sclera: sclerae normal EOM: EOMs intact bilaterally Neck: Neck: normal visual inspection, no lymphadenopathy and trachea midline Chest: Chest palpation & inspection: normal inspection of the chest Resp: Effort & Inspection: normal respiratory effort Auscultation: clear to auscultation bilaterally Cardio: Jugular venous distension: no JVD Rate: regular rate Rhythm: regular rhythm Heart sounds: S1 normal heart sound present and S2 normal heart sound present Peripheral pulses: Peripheral pulses 2+ throughout GI: Inspection: normal to inspection GI Palp: Yes Soft to palpation, No Tenderness to palpation present (GI), No Guarding due to palpation present (GI) and No Rebound tenderness present Percussion: Yes normal to percussion Auscultation: normal bowel sounds : General: Yes no CVA tenderness Back/Spine/Pelvis: Back: no CVA tenderness Neuro: General: patient oriented x3, no focal motor deficits and CN's II-XI intact bilaterally Cognition (Neuro): normal cognition Speech: normal speech Motor exam (neuro): 5/5 motor strength present throughout Extrem: General: capillary refill normal and no clubbing, cyanosis or edema Assessment and Plan Assessment and plan (1) Abnormal CT of the abdomen: Code(s): R93.5 - Abnormal findings on diagnostic imaging of other abdominal regions, including retroperitoneum Status: Acute Assessment and Plan: I have recommended colonoscopy. I have discussed the procedure, risks, benefits, and alternatives. Questions were answered. Patient is agreeable to proceed.
[2025-03-12 10:12] VITALS: BP 105/57; PULSE 56; RESP 18; O2SAT 98
[2025-03-12 10:22] VITALS: BP 119/72; PULSE 62; RESP 20; O2SAT 98
[2025-03-12 10:32] VITALS: BP 131/77; PULSE 62; RESP 20; O2SAT 98
== END 2025-03-12 10:36 | disposition home or self-care (01) ==
PROVIDERS: PCP Internal Medicine; Visit Provider Surgery
PROC: 0DJD8ZZ Inspection of Lower Intestinal Tract, Via Natural or Artificial Opening Endoscopic (ICD-10-PCS; CPT 45378; principal; 2025-03-12 09:30)
DX: R93.3 Abnormal findings on diagnostic imaging of other parts of digestive tract (principal); Z87.891 Personal history of nicotine dependence; E66.01 Morbid (severe) obesity due to excess calories; Z68.42 Body mass index [BMI] 45.0-49.9, adult
CPT/HCPCS: 45378; J2003; J2704; J7120